=== PATIENT | female | born 1955 | race Caucasian/White ===

== ENCOUNTER 2022-04-04 11:31 | Inpatient (IN) | payer MEDICARE, BC ==
[~2022-04-04] VITALS: Ht 172.7 cm; Wt 117.3 kg
[2022-04-04] MEDS ORDERED: NITROGLYCERIN 0.4MG SUBL TABLET SL PRN (14:40)
[2022-04-04] MEDS ORDERED: DEXTROSE 50% 50ML SYRINGE IV PRN (14:40)
[2022-04-04] MEDS ORDERED: GLUCAGON INJ 1MG VIAL SC PRN (14:40)
[2022-04-04] MEDS ORDERED: GLUCOSE 4GM CHEW TABLET PO PRN (14:40)
[2022-04-04 15:10] VITALS: BP 145/79
[2022-04-04] MEDS: INSULIN LISPRO (NovoLOG) PER UNIT SC SCH ×2 (16:59→21:11)
[2022-04-04] MEDS ORDERED: CYCL5TAB PO (18:25)
[2022-04-04] MEDS ORDERED: ECOT81TA5 PO (18:25)
[2022-04-04] MEDS ORDERED: SYMB16INH INH (18:25)
[2022-04-04] MEDS ORDERED: ACET-907 PO (18:25)
[2022-04-04] MEDS ORDERED: AMLO1TAB24 PO (18:25)
[2022-04-04] MEDS ORDERED: VITA500T41 PO (18:25)
[2022-04-04] MEDS ORDERED: CLOP75TA2 PO (18:25)
[2022-04-04] MEDS ORDERED: ATOR80TA59 PO (18:25)
[2022-04-04] MEDS ORDERED: NITR0.4S14 SL (18:31)
[2022-04-04] MEDS ORDERED: LISI5TAB11 PO (18:31)
[2022-04-04] MEDS ORDERED: LANTINJ4 SC (18:31)
[2022-04-04] MEDS ORDERED: ADME100I SC (18:31)
[2022-04-04] MEDS ORDERED: LEVO25TA5 PO (18:31)
[2022-04-04] MEDS ORDERED: MONT10TA97 PO (18:31)
[2022-04-04] MEDS ORDERED: MM S100C PO (18:31)
[2022-04-04] MEDS ORDERED: FENO145T7 PO (18:31)
[2022-04-04] MEDS ORDERED: TOPR25TA PO (18:31)
[2022-04-04] MEDS ORDERED: TRUL0.5I SC (18:44)
[2022-04-04] MEDS ORDERED: NYST1POW9 TOP (18:44)
[2022-04-04] MEDS ORDERED: MIRA3350 PO (18:44)
[2022-04-04] MEDS ORDERED: HOME MED LIST COMPLETE! XX SCH (18:45)
[2022-04-04 20:00] VITALS: BP 164/79
[2022-04-04] MEDS: SYMBICORT 160/4.5MCG INHALER 6GM INH SCH (20:16)
[2022-04-04] MEDS: NYSTATIN 100,000 UNITS/GM TOPICAL PWD 15GM TOP SCH (21:00)
[2022-04-04] MEDS: LEVEMIR (INSULIN DETEMIR) 1 UNITS/0.01ML SC SCH (21:05)
[2022-04-04] MEDS: PANTOPRAZOLE 40MG TAB (PROTONIX) PO SCH (21:11)
[2022-04-04] MEDS: HEPARIN SOD (PORCINE) 5000UNITS/ML 1ML VIAL/SYRINGE SC SCH (21:11)
[2022-04-04] MEDS: DOCUSATE SODIUM 100MG CAPSULE PO SCH (21:12)
[2022-04-04] MEDS: MONTELUKAST 10 MG TAB PO SCH (21:12)
[2022-04-04] MEDS: ATORVASTATIN 20 MG TAB PO SCH (21:12)
[2022-04-04] MEDS: CYCLOBENZAPRINE 5MG TABLET PO PRN (21:15)
[2022-04-04] MEDS: ACETAMINOPHEN TAB 650MG DOSE (2X325MG) PO PRN (21:15)
[2022-04-04] MEDS: SENNA 8.6 MG TAB (SENOKOT) PO SCH (21:18)
[2022-04-04 22:13] VITALS: BP 146/88
[2022-04-05] MEDS: ACETAMINOPHEN TAB 650MG DOSE (2X325MG) PO PRN (01:59)
[2022-04-05 06:00] VITALS: BP 152/72
[2022-04-05] MEDS: CYCLOBENZAPRINE 5MG TABLET PO PRN (06:01)
[2022-04-05] MEDS: LEVOTHYROXINE 25MCG TABLET (0.025MG) PO SCH (06:01)
[2022-04-05 07:28] LABS: BASO # 0.1 10^3/uL (0.0-0.2); BASO % 0.8 % (0.0-1.0); EOS # 0.2 10^3/uL (0.0-0.5); EOS % 2.6 % (0.0-3.0); HEMATOCRIT 34.9 % (36.0-47.0); LYMPH # 1.4 10^3/uL (1.5-5.0); LYMPH % 17.3 % (24.0-44.0); MEAN CORPUSCULAR HEMOGLOBIN 27.2 pg (27.0-33.0); MEAN CORPUSCULAR HGB CONC 31.5 g/dl (32.0-36.5); MEAN CORPUSCULAR VOLUME 86.4 fl (80.0-96.0); MONO # 0.6 10^3/uL (0.0-0.8); MONO % 7.8 % (2.0-8.0); NEUTROPHILS # 5.6 10^3/uL (1.5-8.5); NEUTROPHILS % 70.7 % (36.0-66.0); PLATELET COUNT, AUTOMATED 183 10^3/uL (150-450); RED BLOOD COUNT 4.04 10^6/uL (4.00-5.40)
[2022-04-05 08:23] LABS: BILIRUBIN,TOTAL 0.7 MG/DL (0.3-1.2); CREATININE FOR GFR 1.14 MG/DL (0.55-1.30); GLOMERULAR FILTRATION RATE 50.6 (>45); POTASSIUM SERUM 4.5 MMOL/L (3.5-5.1); TOTAL PROTEIN 6.1 G/DL (5.7-8.2)
[2022-04-05] MEDS: HEPARIN SOD (PORCINE) 5000UNITS/ML 1ML VIAL/SYRINGE SC SCH ×2 (08:46→23:41)
[2022-04-05] MEDS: INSULIN LISPRO (NovoLOG) PER UNIT SC SCH ×4 (08:47→20:46)
[2022-04-05] MEDS: NYSTATIN 100,000 UNITS/GM TOPICAL PWD 15GM TOP SCH ×2 (08:49→20:49)
[2022-04-05] MEDS: FENOFIBRATE 145MG TABLET (TRICOR) PO SCH (08:49)
[2022-04-05] MEDS: lisinopriL 5 MG TAB PO SCH (08:49)
[2022-04-05] MEDS: amLODIPine 5 MG TAB PO SCH (08:49)
[2022-04-05] MEDS: ESCITALOPRAM OXALATE 5MG TABLET (LEXAPRO) PO SCH (08:49)
[2022-04-05] MEDS: ASPIRIN 81MG ENTERIC TABLET PO SCH (08:49)
[2022-04-05] MEDS: PANTOPRAZOLE 40MG TAB (PROTONIX) PO SCH ×2 (08:50→20:45)
[2022-04-05] MEDS: METOPROLOL SUCC *XL* 25MG TAB (TopROL *XL*) PO SCH (08:50)
[2022-04-05] MEDS: CYANOCOBALAMIN 500 MCG TAB PO SCH (08:50)
[2022-04-05] MEDS: CLOPIDOGREL 75 MG TAB PO SCH (08:50)
[2022-04-05] MEDS: DOCUSATE SODIUM 100MG CAPSULE PO SCH ×2 (08:50→20:45)
[2022-04-05] MEDS: FLUTICASONE PROP 0.05% NASAL SPRAY 16 GM (FLONASE) NARES SCH ×2 (09:00→20:48)
[2022-04-05] MEDS ORDERED: FLUBLOK(EGG FREE)(QUAD)INFLUENZA VACC 0.5ML SYRINGE 18YRS & OLDER IM.IMMUN ONE (09:00)
[2022-04-05] MEDS: SYMBICORT 160/4.5MCG INHALER 6GM INH SCH ×2 (10:00→20:05)
[2022-04-05 14:00] VITALS: BP 160/69
[2022-04-05] MEDS: SODIUM CHLORIDE NASAL 0.65% SPRAY BTL (OCEAN) SCH ×2 (15:03→20:45)
[2022-04-05] MEDS: guaiFENesin 200 MG TAB PO SCH ×2 (16:44→20:45)
[2022-04-05] MEDS ORDERED: HEPARIN SOD (PORCINE) 5000UNITS/ML 1ML VIAL/SYRINGE SC SCH (17:00)
[2022-04-05 19:50] VITALS: BP 153/73
[2022-04-05] MEDS: ATORVASTATIN 20 MG TAB PO SCH (20:45)
[2022-04-05] MEDS: traMADol 50 MG TAB PO PRN (20:45)
[2022-04-05] MEDS: MONTELUKAST 10 MG TAB PO SCH (20:45)
[2022-04-05] MEDS: SENNA 8.6 MG TAB (SENOKOT) PO SCH (20:45)
[2022-04-05] MEDS: LEVEMIR (INSULIN DETEMIR) 1 UNITS/0.01ML SC SCH (20:46)
[2022-04-05] MEDS: CEFDINIR 300 MG CAP (OMNICEF) PO SCH (20:53)
[2022-04-06] MEDS: traMADol 50 MG TAB PO PRN (03:53)
[2022-04-06] MEDS: HEPARIN SOD (PORCINE) 5000UNITS/ML 1ML VIAL/SYRINGE SC SCH ×2 (05:54→14:03)
[2022-04-06] MEDS: LEVOTHYROXINE 25MCG TABLET (0.025MG) PO SCH (05:54)
[2022-04-06 06:14] LABS: BASO # 0.1 10^3/uL (0.0-0.2); BASO % 0.8 % (0.0-1.0); EOS # 0.2 10^3/uL (0.0-0.5); EOS % 2.8 % (0.0-3.0); HEMOGLOBIN 10.9 g/dl (12.0-15.5); LYMPH # 1.6 10^3/uL (1.5-5.0); LYMPH % 19.8 % (24.0-44.0); MEAN CORPUSCULAR HEMOGLOBIN 27.3 pg (27.0-33.0); MEAN CORPUSCULAR HGB CONC 31.1 g/dl (32.0-36.5); MEAN CORPUSCULAR VOLUME 87.5 fl (80.0-96.0); MONO # 0.7 10^3/uL (0.0-0.8); MONO % 8.3 % (2.0-8.0); NEUTROPHILS # 5.3 10^3/uL (1.5-8.5); NEUTROPHILS % 67.5 % (36.0-66.0); PLATELET COUNT, AUTOMATED 184 10^3/uL (150-450); WHITE BLOOD COUNT 7.8 10^3/uL (4.0-10.0)
[2022-04-06 06:35] VITALS: BP_SYST 146; BP_SYST 46; BP_DIAS 72
[2022-04-06] MEDS: INSULIN LISPRO (NovoLOG) PER UNIT SC SCH ×4 (07:30→20:18)
[2022-04-06] MEDS: SYMBICORT 160/4.5MCG INHALER 6GM INH SCH ×2 (07:38→20:26)
[2022-04-06] MEDS: ACETAMINOPHEN TAB 650MG DOSE (2X325MG) PO PRN ×2 (07:52→14:03)
[2022-04-06] MEDS: CYANOCOBALAMIN 500 MCG TAB PO SCH (07:52)
[2022-04-06] MEDS: ESCITALOPRAM OXALATE 5MG TABLET (LEXAPRO) PO SCH (07:52)
[2022-04-06] MEDS: CEFDINIR 300 MG CAP (OMNICEF) PO SCH ×2 (07:52→20:17)
[2022-04-06] MEDS: PANTOPRAZOLE 40MG TAB (PROTONIX) PO SCH ×2 (07:52→20:17)
[2022-04-06] MEDS: guaiFENesin 200 MG TAB PO SCH ×3 (07:52→20:17)
[2022-04-06] MEDS: METOPROLOL SUCC *XL* 25MG TAB (TopROL *XL*) PO SCH (07:53)
[2022-04-06] MEDS: ASPIRIN 81MG ENTERIC TABLET PO SCH (07:53)
[2022-04-06] MEDS: FENOFIBRATE 145MG TABLET (TRICOR) PO SCH (07:54)
[2022-04-06] MEDS: lisinopriL 5 MG TAB PO SCH (07:54)
[2022-04-06] MEDS: DOCUSATE SODIUM 100MG CAPSULE PO SCH ×2 (07:54→20:17)
[2022-04-06] MEDS: LORATADINE 10 MG TAB PO SCH (07:54)
[2022-04-06] MEDS: amLODIPine 5 MG TAB PO SCH (07:55)
[2022-04-06] MEDS: CLOPIDOGREL 75 MG TAB PO SCH (07:55)
[2022-04-06] MEDS: SODIUM CHLORIDE NASAL 0.65% SPRAY BTL (OCEAN) SCH ×3 (07:55→20:19)
[2022-04-06] MEDS: FLUTICASONE PROP 0.05% NASAL SPRAY 16 GM (FLONASE) NARES SCH ×2 (07:56→20:19)
[2022-04-06] MEDS: NYSTATIN 100,000 UNITS/GM TOPICAL PWD 15GM TOP SCH ×2 (07:57→20:19)
[2022-04-06 14:00] VITALS: BP 140/60
[2022-04-06 20:03] VITALS: BP 147/68
[2022-04-06] MEDS: ATORVASTATIN 20 MG TAB PO SCH (20:17)
[2022-04-06] MEDS: SENNA 8.6 MG TAB (SENOKOT) PO SCH (20:17)
[2022-04-06] MEDS: MONTELUKAST 10 MG TAB PO SCH (20:17)
[2022-04-06] MEDS: LEVEMIR (INSULIN DETEMIR) 1 UNITS/0.01ML SC SCH (20:18)
[2022-04-07] MEDS: HEPARIN SOD (PORCINE) 5000UNITS/ML 1ML VIAL/SYRINGE SC SCH ×4 (00:03→22:12)
[2022-04-07] MEDS: traMADol 50 MG TAB PO PRN (03:14)
[2022-04-07] MEDS: LEVOTHYROXINE 25MCG TABLET (0.025MG) PO SCH (05:51)
[2022-04-07 06:06] VITALS: BP 136/85
[2022-04-07 06:18] LABS: BASO # 0.1 10^3/uL (0.0-0.2); BASO % 0.7 % (0.0-1.0); EOS # 0.2 10^3/uL (0.0-0.5); EOS % 2.6 % (0.0-3.0); HEMATOCRIT 34.2 % (36.0-47.0); HEMOGLOBIN 10.5 g/dl (12.0-15.5); LYMPH # 1.4 10^3/uL (1.5-5.0); LYMPH % 19.4 % (24.0-44.0); MEAN CORPUSCULAR HEMOGLOBIN 27.1 pg (27.0-33.0); MEAN CORPUSCULAR HGB CONC 30.7 g/dl (32.0-36.5); MEAN CORPUSCULAR VOLUME 88.1 fl (80.0-96.0); MONO # 0.6 10^3/uL (0.0-0.8); MONO % 8.5 % (2.0-8.0); NEUTROPHILS # 4.9 10^3/uL (1.5-8.5); NEUTROPHILS % 68.2 % (36.0-66.0); PLATELET COUNT, AUTOMATED 216 10^3/uL (150-450); RED BLOOD COUNT 3.88 10^6/uL (4.00-5.40); WHITE BLOOD COUNT 7.2 10^3/uL (4.0-10.0)
[2022-04-07 06:38] LABS: CALCIUM LEVEL 8.8 MG/DL (8.3-10.6); CREATININE FOR GFR 1.2 MG/DL (0.55-1.30); GLOMERULAR FILTRATION RATE 47.7 (>45); POTASSIUM SERUM 4.3 MMOL/L (3.5-5.1)
[2022-04-07] MEDS: SYMBICORT 160/4.5MCG INHALER 6GM INH SCH ×2 (07:33→20:19)
[2022-04-07] MEDS: CEFDINIR 300 MG CAP (OMNICEF) PO SCH ×2 (08:25→19:35)
[2022-04-07] MEDS: ESCITALOPRAM OXALATE 5MG TABLET (LEXAPRO) PO SCH (08:26)
[2022-04-07] MEDS: PANTOPRAZOLE 40MG TAB (PROTONIX) PO SCH ×2 (08:26→19:35)
[2022-04-07] MEDS: DOCUSATE SODIUM 100MG CAPSULE PO SCH ×2 (08:27→19:35)
[2022-04-07] MEDS: ACETAMINOPHEN TAB 650MG DOSE (2X325MG) PO PRN ×2 (08:27→19:35)
[2022-04-07] MEDS: INSULIN LISPRO (NovoLOG) PER UNIT SC SCH ×4 (08:27→21:00)
[2022-04-07] MEDS: guaiFENesin 200 MG TAB PO SCH ×3 (08:27→19:34)
[2022-04-07] MEDS: ASPIRIN 81MG ENTERIC TABLET PO SCH (08:28)
[2022-04-07] MEDS: LORATADINE 10 MG TAB PO SCH (08:28)
[2022-04-07] MEDS: CLOPIDOGREL 75 MG TAB PO SCH (08:28)
[2022-04-07] MEDS: lisinopriL 5 MG TAB PO SCH (08:29)
[2022-04-07] MEDS: METOPROLOL SUCC *XL* 25MG TAB (TopROL *XL*) PO SCH (08:29)
[2022-04-07] MEDS: CYANOCOBALAMIN 500 MCG TAB PO SCH (08:29)
[2022-04-07] MEDS: amLODIPine 5 MG TAB PO SCH (08:30)
[2022-04-07] MEDS: SODIUM CHLORIDE NASAL 0.65% SPRAY BTL (OCEAN) SCH ×3 (08:31→19:36)
[2022-04-07] MEDS: NYSTATIN 100,000 UNITS/GM TOPICAL PWD 15GM TOP SCH ×2 (08:31→19:36)
[2022-04-07] MEDS: FLUTICASONE PROP 0.05% NASAL SPRAY 16 GM (FLONASE) NARES SCH ×2 (08:43→19:36)
[2022-04-07] MEDS: FENOFIBRATE 145MG TABLET (TRICOR) PO SCH (10:19)
[2022-04-07] MEDS: BACLOFEN 5MG PER 1/2 TABLET PO SCH (12:31)
[2022-04-07 14:00] VITALS: BP 158/65
[2022-04-07] MEDS: ATORVASTATIN 20 MG TAB PO SCH (19:34)
[2022-04-07] MEDS: MONTELUKAST 10 MG TAB PO SCH (19:35)
[2022-04-07] MEDS: SENNA 8.6 MG TAB (SENOKOT) PO SCH (19:35)
[2022-04-07 20:00] VITALS: BP 162/68
[2022-04-07] MEDS: LEVEMIR (INSULIN DETEMIR) 1 UNITS/0.01ML SC SCH (22:12)
[2022-04-08] MEDS: traMADol 50 MG TAB PO PRN ×3 (02:25→21:07)
[2022-04-08 06:00] VITALS: BP 168/78
[2022-04-08] MEDS: HEPARIN SOD (PORCINE) 5000UNITS/ML 1ML VIAL/SYRINGE SC SCH ×3 (06:28→22:26)
[2022-04-08] MEDS: LEVOTHYROXINE 25MCG TABLET (0.025MG) PO SCH (06:28)
[2022-04-08] MEDS: SYMBICORT 160/4.5MCG INHALER 6GM INH SCH ×2 (07:11→21:53)
[2022-04-08] MEDS: FLUTICASONE PROP 0.05% NASAL SPRAY 16 GM (FLONASE) NARES SCH ×2 (09:00→21:00)
[2022-04-08] MEDS: DOCUSATE SODIUM 100MG CAPSULE PO SCH ×2 (09:00→21:06)
[2022-04-08] MEDS: SODIUM CHLORIDE NASAL 0.65% SPRAY BTL (OCEAN) SCH ×3 (09:00→21:07)
[2022-04-08] MEDS: INSULIN LISPRO (NovoLOG) PER UNIT SC SCH ×4 (09:11→21:00)
[2022-04-08] MEDS: CYANOCOBALAMIN 500 MCG TAB PO SCH (09:11)
[2022-04-08] MEDS: CEFDINIR 300 MG CAP (OMNICEF) PO SCH ×2 (09:12→21:05)
[2022-04-08] MEDS: guaiFENesin 200 MG TAB PO SCH ×3 (09:12→21:05)
[2022-04-08] MEDS: ASPIRIN 81MG ENTERIC TABLET PO SCH (09:12)
[2022-04-08] MEDS: FENOFIBRATE 145MG TABLET (TRICOR) PO SCH (09:12)
[2022-04-08] MEDS: CLOPIDOGREL 75 MG TAB PO SCH (09:12)
[2022-04-08] MEDS: BACLOFEN 5MG PER 1/2 TABLET PO SCH (09:12)
[2022-04-08] MEDS: PANTOPRAZOLE 40MG TAB (PROTONIX) PO SCH ×2 (09:12→21:06)
[2022-04-08] MEDS: LORATADINE 10 MG TAB PO SCH (09:12)
[2022-04-08] MEDS: ESCITALOPRAM OXALATE 5MG TABLET (LEXAPRO) PO SCH (09:13)
[2022-04-08] MEDS: METOPROLOL SUCC *XL* 25MG TAB (TopROL *XL*) PO SCH (09:13)
[2022-04-08] MEDS: amLODIPine 5 MG TAB PO SCH (09:14)
[2022-04-08] MEDS: lisinopriL 5 MG TAB PO SCH (09:14)
[2022-04-08] MEDS: NYSTATIN 100,000 UNITS/GM TOPICAL PWD 15GM TOP SCH ×2 (09:15→21:07)
[2022-04-08 14:00] VITALS: BP 164/76
[2022-04-08 20:00] VITALS: BP 144/68
[2022-04-08] MEDS: ATORVASTATIN 20 MG TAB PO SCH (21:05)
[2022-04-08] MEDS: MONTELUKAST 10 MG TAB PO SCH (21:06)
[2022-04-08] MEDS: SENNA 8.6 MG TAB (SENOKOT) PO SCH (21:06)
[2022-04-08] MEDS: LEVEMIR (INSULIN DETEMIR) 1 UNITS/0.01ML SC SCH (21:07)
[2022-04-09 06:00] VITALS: BP 162/84
[2022-04-09] MEDS: LEVOTHYROXINE 25MCG TABLET (0.025MG) PO SCH (06:31)
[2022-04-09] MEDS: HEPARIN SOD (PORCINE) 5000UNITS/ML 1ML VIAL/SYRINGE SC SCH ×3 (06:32→21:37)
[2022-04-09] MEDS: SYMBICORT 160/4.5MCG INHALER 6GM INH SCH ×2 (07:28→20:42)
[2022-04-09] MEDS: CYANOCOBALAMIN 500 MCG TAB PO SCH (08:19)
[2022-04-09] MEDS: FENOFIBRATE 145MG TABLET (TRICOR) PO SCH (08:20)
[2022-04-09] MEDS: CLOPIDOGREL 75 MG TAB PO SCH (08:20)
[2022-04-09] MEDS: PANTOPRAZOLE 40MG TAB (PROTONIX) PO SCH ×2 (08:20→21:36)
[2022-04-09] MEDS: ESCITALOPRAM OXALATE 5MG TABLET (LEXAPRO) PO SCH (08:20)
[2022-04-09] MEDS: CEFDINIR 300 MG CAP (OMNICEF) PO SCH ×2 (08:20→21:35)
[2022-04-09] MEDS: BACLOFEN 5MG PER 1/2 TABLET PO SCH (08:20)
[2022-04-09] MEDS: ASPIRIN 81MG ENTERIC TABLET PO SCH (08:20)
[2022-04-09] MEDS: guaiFENesin 200 MG TAB PO SCH ×3 (08:20→21:36)
[2022-04-09] MEDS: LORATADINE 10 MG TAB PO SCH (08:20)
[2022-04-09] MEDS: DOCUSATE SODIUM 100MG CAPSULE PO SCH ×2 (08:20→21:00)
[2022-04-09] MEDS: amLODIPine 5 MG TAB PO SCH (08:21)
[2022-04-09] MEDS: lisinopriL 5 MG TAB PO SCH (08:21)
[2022-04-09] MEDS: METOPROLOL SUCC *XL* 25MG TAB (TopROL *XL*) PO SCH (08:21)
[2022-04-09] MEDS: FLUTICASONE PROP 0.05% NASAL SPRAY 16 GM (FLONASE) NARES SCH ×2 (08:22→21:00)
[2022-04-09] MEDS: SODIUM CHLORIDE NASAL 0.65% SPRAY BTL (OCEAN) SCH ×3 (08:22→21:37)
[2022-04-09] MEDS: INSULIN LISPRO (NovoLOG) PER UNIT SC SCH ×4 (08:22→21:00)
[2022-04-09] MEDS: NYSTATIN 100,000 UNITS/GM TOPICAL PWD 15GM TOP SCH ×2 (08:23→21:37)
[2022-04-09 14:00] VITALS: BP 142/76
[2022-04-09 20:00] VITALS: BP 140/86
[2022-04-09] MEDS: SENNA 8.6 MG TAB (SENOKOT) PO SCH (21:00)
[2022-04-09] MEDS: LEVEMIR (INSULIN DETEMIR) 1 UNITS/0.01ML SC SCH (21:35)
[2022-04-09] MEDS: ATORVASTATIN 20 MG TAB PO SCH (21:35)
[2022-04-09] MEDS: MONTELUKAST 10 MG TAB PO SCH (21:36)
[2022-04-09] MEDS: traMADol 50 MG TAB PO PRN (21:37)
[2022-04-10 03:37] VITALS: BP 164/92
[2022-04-10] MEDS ORDERED: FIORICET TAB PO ONE (04:00)
[2022-04-10] MEDS ORDERED: CALCIUM CARBONATE 500 MG CHEW U/D PO ONE (04:10)
[2022-04-10 05:15] VITALS: BP 138/72
[2022-04-10] MEDS: LEVOTHYROXINE 25MCG TABLET (0.025MG) PO SCH (06:08)
[2022-04-10] MEDS: HEPARIN SOD (PORCINE) 5000UNITS/ML 1ML VIAL/SYRINGE SC SCH ×3 (06:09→21:41)
[2022-04-10 06:37] LABS: BASO # 0.1 10^3/uL (0.0-0.2); BASO % 0.8 % (0.0-1.0); EOS # 0.2 10^3/uL (0.0-0.5); EOS % 2.5 % (0.0-3.0); HEMATOCRIT 33.3 % (36.0-47.0); HEMOGLOBIN 10.2 g/dl (12.0-15.5); LYMPH # 1.3 10^3/uL (1.5-5.0); LYMPH % 20.1 % (24.0-44.0); MEAN CORPUSCULAR HGB CONC 30.6 g/dl (32.0-36.5); MEAN CORPUSCULAR VOLUME 88.1 fl (80.0-96.0); MONO # 0.6 10^3/uL (0.0-0.8); MONO % 9.1 % (2.0-8.0); NEUTROPHILS # 4.3 10^3/uL (1.5-8.5); NEUTROPHILS % 66.4 % (36.0-66.0); PLATELET COUNT, AUTOMATED 247 10^3/uL (150-450); RED BLOOD COUNT 3.78 10^6/uL (4.00-5.40); WHITE BLOOD COUNT 6.5 10^3/uL (4.0-10.0)
[2022-04-10 06:48] LABS: CALCIUM LEVEL 9.1 MG/DL (8.3-10.6); CREATININE FOR GFR 1.06 MG/DL (0.55-1.30); POTASSIUM SERUM 4.3 MMOL/L (3.5-5.1)
[2022-04-10] MEDS: SYMBICORT 160/4.5MCG INHALER 6GM INH SCH ×2 (07:29→21:02)
[2022-04-10] MEDS: FENOFIBRATE 145MG TABLET (TRICOR) PO SCH (07:37)
[2022-04-10] MEDS: LORATADINE 10 MG TAB PO SCH (07:37)
[2022-04-10] MEDS: guaiFENesin 200 MG TAB PO SCH ×3 (07:37→21:37)
[2022-04-10] MEDS: amLODIPine 5 MG TAB PO SCH (07:37)
[2022-04-10] MEDS: CEFDINIR 300 MG CAP (OMNICEF) PO SCH ×2 (07:37→21:36)
[2022-04-10] MEDS: CYANOCOBALAMIN 500 MCG TAB PO SCH (07:37)
[2022-04-10] MEDS: CLOPIDOGREL 75 MG TAB PO SCH (07:38)
[2022-04-10] MEDS: INSULIN LISPRO (NovoLOG) PER UNIT SC SCH ×4 (07:38→21:00)
[2022-04-10] MEDS: DOCUSATE SODIUM 100MG CAPSULE PO SCH ×2 (07:38→21:00)
[2022-04-10] MEDS: PANTOPRAZOLE 40MG TAB (PROTONIX) PO SCH ×2 (07:39→21:37)
[2022-04-10] MEDS: ESCITALOPRAM OXALATE 5MG TABLET (LEXAPRO) PO SCH (07:39)
[2022-04-10] MEDS: METOPROLOL SUCC *XL* 25MG TAB (TopROL *XL*) PO SCH (07:39)
[2022-04-10] MEDS: BACLOFEN 5MG PER 1/2 TABLET PO SCH (07:39)
[2022-04-10] MEDS: ASPIRIN 81MG ENTERIC TABLET PO SCH (07:39)
[2022-04-10] MEDS: SODIUM CHLORIDE NASAL 0.65% SPRAY BTL (OCEAN) SCH ×3 (07:40→21:00)
[2022-04-10] MEDS: NYSTATIN 100,000 UNITS/GM TOPICAL PWD 15GM TOP SCH ×2 (07:40→21:42)
[2022-04-10] MEDS: FLUTICASONE PROP 0.05% NASAL SPRAY 16 GM (FLONASE) NARES SCH ×2 (07:40→21:00)
[2022-04-10] MEDS: traMADol 50 MG TAB PO PRN ×2 (07:40→21:37)
[2022-04-10] MEDS: lisinopriL 5 MG TAB PO SCH (07:41)
[2022-04-10 14:00] VITALS: BP 143/69
[2022-04-10 20:00] VITALS: BP_SYST 140; BP_DIAS 78; BP_DIAS 80
[2022-04-10] MEDS: SENNA 8.6 MG TAB (SENOKOT) PO SCH (21:00)
[2022-04-10] MEDS: ATORVASTATIN 20 MG TAB PO SCH (21:36)
[2022-04-10] MEDS: MONTELUKAST 10 MG TAB PO SCH (21:36)
[2022-04-10] MEDS: LEVEMIR (INSULIN DETEMIR) 1 UNITS/0.01ML SC SCH (21:41)
[2022-04-11 06:00] VITALS: BP 140/74
[2022-04-11] MEDS: LEVOTHYROXINE 25MCG TABLET (0.025MG) PO SCH (06:31)
[2022-04-11] MEDS: SYMBICORT 160/4.5MCG INHALER 6GM INH SCH ×2 (07:55→20:14)
[2022-04-11] MEDS: traMADol 50 MG TAB PO PRN ×3 (08:29→20:42)
[2022-04-11] MEDS: FENOFIBRATE 145MG TABLET (TRICOR) PO SCH (08:29)
[2022-04-11] MEDS: CYANOCOBALAMIN 500 MCG TAB PO SCH (08:29)
[2022-04-11] MEDS: CEFDINIR 300 MG CAP (OMNICEF) PO SCH ×2 (08:30→20:41)
[2022-04-11] MEDS: ESCITALOPRAM OXALATE 5MG TABLET (LEXAPRO) PO SCH (08:30)
[2022-04-11] MEDS: lisinopriL 5 MG TAB PO SCH (08:30)
[2022-04-11] MEDS: PANTOPRAZOLE 40MG TAB (PROTONIX) PO SCH ×2 (08:30→20:42)
[2022-04-11] MEDS: LORATADINE 10 MG TAB PO SCH (08:30)
[2022-04-11] MEDS: guaiFENesin 200 MG TAB PO SCH ×3 (08:30→20:42)
[2022-04-11] MEDS: BACLOFEN 5MG PER 1/2 TABLET PO SCH (08:30)
[2022-04-11] MEDS: amLODIPine 5 MG TAB PO SCH (08:30)
[2022-04-11] MEDS: ASPIRIN 81MG ENTERIC TABLET PO SCH (08:30)
[2022-04-11] MEDS: METOPROLOL SUCC *XL* 25MG TAB (TopROL *XL*) PO SCH (08:30)
[2022-04-11] MEDS: INSULIN LISPRO (NovoLOG) PER UNIT SC SCH ×4 (08:31→20:35)
[2022-04-11] MEDS: HEPARIN SOD (PORCINE) 5000UNITS/ML 1ML VIAL/SYRINGE SC SCH ×3 (08:31→22:12)
[2022-04-11] MEDS: DOCUSATE SODIUM 100MG CAPSULE PO SCH ×2 (08:31→20:06)
[2022-04-11] MEDS: CLOPIDOGREL 75 MG TAB PO SCH (08:32)
[2022-04-11] MEDS: NYSTATIN 100,000 UNITS/GM TOPICAL PWD 15GM TOP SCH ×2 (08:32→20:44)
[2022-04-11] MEDS: FLUTICASONE PROP 0.05% NASAL SPRAY 16 GM (FLONASE) NARES SCH ×2 (08:32→20:43)
[2022-04-11] MEDS: SODIUM CHLORIDE NASAL 0.65% SPRAY BTL (OCEAN) SCH ×3 (08:32→20:43)
[2022-04-11 14:00] VITALS: BP 149/67
[2022-04-11 20:00] VITALS: BP 150/66
[2022-04-11] MEDS: SENNA 8.6 MG TAB (SENOKOT) PO SCH (20:06)
[2022-04-11] MEDS: MONTELUKAST 10 MG TAB PO SCH (20:41)
[2022-04-11] MEDS: ATORVASTATIN 20 MG TAB PO SCH (20:41)
[2022-04-11] MEDS: LEVEMIR (INSULIN DETEMIR) 1 UNITS/0.01ML SC SCH (20:42)
[2022-04-12] MEDS: traMADol 50 MG TAB PO PRN (03:47)
[2022-04-12 06:00] VITALS: BP 144/68
[2022-04-12] MEDS: LEVOTHYROXINE 25MCG TABLET (0.025MG) PO SCH (06:04)
[2022-04-12] MEDS: HEPARIN SOD (PORCINE) 5000UNITS/ML 1ML VIAL/SYRINGE SC SCH ×3 (06:05→21:54)
[2022-04-12] MEDS: ASPIRIN 81MG ENTERIC TABLET PO SCH (08:23)
[2022-04-12] MEDS: LORATADINE 10 MG TAB PO SCH (08:24)
[2022-04-12] MEDS: guaiFENesin 200 MG TAB PO SCH ×3 (08:24→21:51)
[2022-04-12] MEDS: PANTOPRAZOLE 40MG TAB (PROTONIX) PO SCH ×2 (08:24→21:51)
[2022-04-12] MEDS: CLOPIDOGREL 75 MG TAB PO SCH (08:24)
[2022-04-12] MEDS: CEFDINIR 300 MG CAP (OMNICEF) PO SCH (08:24)
[2022-04-12] MEDS: CYANOCOBALAMIN 500 MCG TAB PO SCH (08:24)
[2022-04-12] MEDS: BACLOFEN 5MG PER 1/2 TABLET PO SCH (08:24)
[2022-04-12] MEDS: FENOFIBRATE 145MG TABLET (TRICOR) PO SCH (08:24)
[2022-04-12] MEDS: ESCITALOPRAM OXALATE 5MG TABLET (LEXAPRO) PO SCH (08:24)
[2022-04-12] MEDS: DOCUSATE SODIUM 100MG CAPSULE PO SCH ×2 (08:24→21:00)
[2022-04-12] MEDS: INSULIN LISPRO (NovoLOG) PER UNIT SC SCH ×4 (08:25→21:00)
[2022-04-12] MEDS: METOPROLOL SUCC *XL* 25MG TAB (TopROL *XL*) PO SCH (08:25)
[2022-04-12] MEDS: lisinopriL 5 MG TAB PO SCH (08:25)
[2022-04-12] MEDS: amLODIPine 5 MG TAB PO SCH (08:25)
[2022-04-12] MEDS: SODIUM CHLORIDE NASAL 0.65% SPRAY BTL (OCEAN) SCH ×3 (08:26→21:52)
[2022-04-12] MEDS: NYSTATIN 100,000 UNITS/GM TOPICAL PWD 15GM TOP SCH ×2 (08:26→21:00)
[2022-04-12] MEDS: FLUTICASONE PROP 0.05% NASAL SPRAY 16 GM (FLONASE) NARES SCH ×2 (08:26→21:00)
[2022-04-12] MEDS: SYMBICORT 160/4.5MCG INHALER 6GM INH SCH ×2 (09:06→20:14)
[2022-04-12 10:56] LABS: BASO # 0.1 10^3/uL (0.0-0.2); EOS # 0.2 10^3/uL (0.0-0.5); EOS % 2.3 % (0.0-3.0); HEMATOCRIT 35.5 % (36.0-47.0); HEMOGLOBIN 10.9 g/dl (12.0-15.5); LYMPH # 1.2 10^3/uL (1.5-5.0); MEAN CORPUSCULAR HEMOGLOBIN 27.4 pg (27.0-33.0); MEAN CORPUSCULAR HGB CONC 30.7 g/dl (32.0-36.5); MEAN CORPUSCULAR VOLUME 89.2 fl (80.0-96.0); MONO # 0.5 10^3/uL (0.0-0.8); MONO % 7.3 % (2.0-8.0); NEUTROPHILS # 5.2 10^3/uL (1.5-8.5); PLATELET COUNT, AUTOMATED 286 10^3/uL (150-450); RED BLOOD COUNT 3.98 10^6/uL (4.00-5.40); WHITE BLOOD COUNT 7.3 10^3/uL (4.0-10.0)
[2022-04-12 11:30] LABS: CALCIUM LEVEL 9.3 MG/DL (8.3-10.6); CREATININE FOR GFR 1.15 MG/DL (0.55-1.30); GLOMERULAR FILTRATION RATE 50.1 (>45); POTASSIUM SERUM 4.3 MMOL/L (3.5-5.1)
[2022-04-12] MEDS: GABAPENTIN 100 MG CAP PO SCH ×2 (12:15→16:11)
[2022-04-12 15:08] VITALS: BP 148/80
[2022-04-12] MEDS ORDERED: MAALOX 30 ML SUSP *UDC PO ONE (16:30)
[2022-04-12] MEDS: DICLOFENAC EPOLAMINE 1.3% PATCH TOP SCH (17:35)
[2022-04-12 20:00] VITALS: BP 126/70
[2022-04-12] MEDS: SENNA 8.6 MG TAB (SENOKOT) PO SCH (21:00)
[2022-04-12] MEDS: ATORVASTATIN 20 MG TAB PO SCH (21:51)
[2022-04-12] MEDS: MONTELUKAST 10 MG TAB PO SCH (21:51)
[2022-04-12] MEDS: LEVEMIR (INSULIN DETEMIR) 1 UNITS/0.01ML SC SCH (21:52)
[2022-04-13] MEDS: traMADol 50 MG TAB PO PRN ×2 (02:47→11:05)
[2022-04-13 06:00] VITALS: BP 168/70
[2022-04-13] MEDS: HEPARIN SOD (PORCINE) 5000UNITS/ML 1ML VIAL/SYRINGE SC SCH ×3 (06:02→21:39)
[2022-04-13] MEDS: LEVOTHYROXINE 25MCG TABLET (0.025MG) PO SCH (06:02)
[2022-04-13] MEDS: DICLOFENAC EPOLAMINE 1.3% PATCH TOP SCH ×2 (06:03→17:26)
[2022-04-13] MEDS: NYSTATIN 100,000 UNITS/GM TOPICAL PWD 15GM TOP SCH ×2 (09:00→21:00)
[2022-04-13] MEDS: FLUTICASONE PROP 0.05% NASAL SPRAY 16 GM (FLONASE) NARES SCH (09:00)
[2022-04-13] MEDS: SODIUM CHLORIDE NASAL 0.65% SPRAY BTL (OCEAN) SCH ×3 (09:00→21:34)
[2022-04-13] MEDS: lisinopriL 5 MG TAB PO SCH (09:08)
[2022-04-13] MEDS: CLOPIDOGREL 75 MG TAB PO SCH (09:08)
[2022-04-13] MEDS: METOPROLOL SUCC *XL* 25MG TAB (TopROL *XL*) PO SCH (09:08)
[2022-04-13] MEDS: LORATADINE 10 MG TAB PO SCH (09:08)
[2022-04-13] MEDS: ASPIRIN 81MG ENTERIC TABLET PO SCH (09:08)
[2022-04-13] MEDS: DOCUSATE SODIUM 100MG CAPSULE PO SCH ×2 (09:08→21:00)
[2022-04-13] MEDS: CYANOCOBALAMIN 500 MCG TAB PO SCH (09:08)
[2022-04-13] MEDS: FENOFIBRATE 145MG TABLET (TRICOR) PO SCH (09:08)
[2022-04-13] MEDS: DULoxetine 20MG CAP (CYMBALTA) PO SCH (09:08)
[2022-04-13] MEDS: INSULIN LISPRO (NovoLOG) PER UNIT SC SCH ×4 (09:08→21:00)
[2022-04-13] MEDS: amLODIPine 5 MG TAB PO SCH (09:09)
[2022-04-13] MEDS: guaiFENesin 200 MG TAB PO SCH ×3 (09:09→21:35)
[2022-04-13] MEDS: PANTOPRAZOLE 40MG TAB (PROTONIX) PO SCH ×2 (09:09→21:35)
[2022-04-13] MEDS: BACLOFEN 5MG PER 1/2 TABLET PO SCH (09:09)
[2022-04-13] MEDS: MIRALAX *UNIT DOSE* 17GM PACKET PO SCH (12:15)
[2022-04-13] MEDS: SYMBICORT 160/4.5MCG INHALER 6GM INH SCH ×2 (13:40→20:30)
[2022-04-13 14:00] VITALS: BP 169/74
[2022-04-13 20:00] VITALS: BP 162/68
[2022-04-13] MEDS: SENNA 8.6 MG TAB (SENOKOT) PO SCH (21:00)
[2022-04-13] MEDS: OXYMETAZOLINE 0.05% NASAL SPRAY (AFRIN) SCH (21:34)
[2022-04-13] MEDS: LEVEMIR (INSULIN DETEMIR) 1 UNITS/0.01ML SC SCH (21:34)
[2022-04-13] MEDS: RAMELTEON 8 MG TAB (ROZEREM) PO SCH (21:35)
[2022-04-13] MEDS: ATORVASTATIN 20 MG TAB PO SCH (21:35)
[2022-04-13] MEDS: MONTELUKAST 10 MG TAB PO SCH (21:35)
[2022-04-14] MEDS: MAALOX 30 ML SUSP *UDC PO PRN ×2 (00:55→13:24)
[2022-04-14] MEDS: traMADol 50 MG TAB PO PRN ×2 (05:12→11:32)
[2022-04-14] MEDS: DICLOFENAC EPOLAMINE 1.3% PATCH TOP SCH ×2 (05:13→14:54)
[2022-04-14] MEDS: LEVOTHYROXINE 25MCG TABLET (0.025MG) PO SCH (05:13)
[2022-04-14 05:36] VITALS: BP 140/70
[2022-04-14] MEDS: HEPARIN SOD (PORCINE) 5000UNITS/ML 1ML VIAL/SYRINGE SC SCH ×3 (06:34→21:54)
[2022-04-14 06:39] LABS: BASO # 0.1 10^3/uL (0.0-0.2); BASO % 0.7 % (0.0-1.0); EOS # 0.2 10^3/uL (0.0-0.5); EOS % 3.2 % (0.0-3.0); HEMATOCRIT 32.5 % (36.0-47.0); HEMOGLOBIN 10.1 g/dl (12.0-15.5); LYMPH # 1.3 10^3/uL (1.5-5.0); LYMPH % 18.7 % (24.0-44.0); MEAN CORPUSCULAR HEMOGLOBIN 27.2 pg (27.0-33.0); MEAN CORPUSCULAR HGB CONC 31.1 g/dl (32.0-36.5); MEAN CORPUSCULAR VOLUME 87.6 fl (80.0-96.0); MONO # 0.5 10^3/uL (0.0-0.8); MONO % 7.4 % (2.0-8.0); NEUTROPHILS # 4.7 10^3/uL (1.5-8.5); PLATELET COUNT, AUTOMATED 222 10^3/uL (150-450); RED BLOOD COUNT 3.71 10^6/uL (4.00-5.40); WHITE BLOOD COUNT 6.9 10^3/uL (4.0-10.0)
[2022-04-14 06:58] LABS: CALCIUM LEVEL 8.5 MG/DL (8.3-10.6); CREATININE FOR GFR 1.05 MG/DL (0.55-1.30); GLOMERULAR FILTRATION RATE 55.7 (>45); POTASSIUM SERUM 4.3 MMOL/L (3.5-5.1)
[2022-04-14] MEDS: SYMBICORT 160/4.5MCG INHALER 6GM INH SCH ×2 (07:27→20:09)
[2022-04-14] MEDS: INSULIN LISPRO (NovoLOG) PER UNIT SC SCH ×4 (08:29→21:00)
[2022-04-14] MEDS: CYANOCOBALAMIN 500 MCG TAB PO SCH (08:29)
[2022-04-14] MEDS: FENOFIBRATE 145MG TABLET (TRICOR) PO SCH (08:29)
[2022-04-14] MEDS: METOPROLOL SUCC *XL* 25MG TAB (TopROL *XL*) PO SCH (08:29)
[2022-04-14] MEDS: DOCUSATE SODIUM 100MG CAPSULE PO SCH ×2 (08:30→21:26)
[2022-04-14] MEDS: BACLOFEN 5MG PER 1/2 TABLET PO SCH (08:30)
[2022-04-14] MEDS: DULoxetine 20MG CAP (CYMBALTA) PO SCH (08:30)
[2022-04-14] MEDS: ASPIRIN 81MG ENTERIC TABLET PO SCH (08:30)
[2022-04-14] MEDS: lisinopriL 5 MG TAB PO SCH (08:30)
[2022-04-14] MEDS: CLOPIDOGREL 75 MG TAB PO SCH (08:30)
[2022-04-14] MEDS: LORATADINE 10 MG TAB PO SCH (08:30)
[2022-04-14] MEDS: PANTOPRAZOLE 40MG TAB (PROTONIX) PO SCH ×2 (08:30→21:23)
[2022-04-14] MEDS: OXYMETAZOLINE 0.05% NASAL SPRAY (AFRIN) SCH ×2 (08:31→21:25)
[2022-04-14] MEDS: amLODIPine 5 MG TAB PO SCH (08:31)
[2022-04-14] MEDS: SODIUM CHLORIDE NASAL 0.65% SPRAY BTL (OCEAN) SCH ×3 (08:31→21:25)
[2022-04-14] MEDS: MIRALAX *UNIT DOSE* 17GM PACKET PO SCH (08:31)
[2022-04-14] MEDS: guaiFENesin 200 MG TAB PO SCH ×3 (08:31→21:23)
[2022-04-14] MEDS: NYSTATIN 100,000 UNITS/GM TOPICAL PWD 15GM TOP SCH ×2 (08:32→21:25)
[2022-04-14 13:50] VITALS: BP 160/62
[2022-04-14] MEDS: SIMETHICONE 80MG CHEW TAB PO SCH ×2 (14:53→21:23)
[2022-04-14 20:00] VITALS: BP 140/64
[2022-04-14] MEDS: ATORVASTATIN 20 MG TAB PO SCH (21:23)
[2022-04-14] MEDS: MONTELUKAST 10 MG TAB PO SCH (21:23)
[2022-04-14] MEDS: RAMELTEON 8 MG TAB (ROZEREM) PO SCH (21:23)
[2022-04-14] MEDS: traMADol 50 MG TAB PO SCH (21:24)
[2022-04-14] MEDS: LEVEMIR (INSULIN DETEMIR) 1 UNITS/0.01ML SC SCH (21:25)
[2022-04-14] MEDS: SENNA 8.6 MG TAB (SENOKOT) PO SCH (21:26)
[2022-04-15] MEDS: DICLOFENAC EPOLAMINE 1.3% PATCH TOP SCH ×2 (05:44→16:55)
[2022-04-15] MEDS: LEVOTHYROXINE 25MCG TABLET (0.025MG) PO SCH (05:44)
[2022-04-15 06:00] VITALS: BP 135/58
[2022-04-15] MEDS: HEPARIN SOD (PORCINE) 5000UNITS/ML 1ML VIAL/SYRINGE SC SCH ×3 (06:58→21:31)
[2022-04-15] MEDS: INSULIN LISPRO (NovoLOG) PER UNIT SC SCH ×4 (07:30→21:00)
[2022-04-15] MEDS: SYMBICORT 160/4.5MCG INHALER 6GM INH SCH ×2 (07:38→20:42)
[2022-04-15] MEDS: DOCUSATE SODIUM 100MG CAPSULE PO SCH ×2 (08:19→21:30)
[2022-04-15] MEDS: LORATADINE 10 MG TAB PO SCH (08:19)
[2022-04-15] MEDS: DULoxetine 20MG CAP (CYMBALTA) PO SCH (08:20)
[2022-04-15] MEDS: ASPIRIN 81MG ENTERIC TABLET PO SCH (08:20)
[2022-04-15] MEDS: MIRALAX *UNIT DOSE* 17GM PACKET PO SCH (08:21)
[2022-04-15] MEDS: SIMETHICONE 80MG CHEW TAB PO SCH ×3 (08:21→21:29)
[2022-04-15] MEDS: BACLOFEN 5MG PER 1/2 TABLET PO SCH (08:21)
[2022-04-15] MEDS: CLOPIDOGREL 75 MG TAB PO SCH (08:22)
[2022-04-15] MEDS: guaiFENesin 200 MG TAB PO SCH ×3 (08:22→21:29)
[2022-04-15] MEDS: lisinopriL 5 MG TAB PO SCH (08:22)
[2022-04-15] MEDS: amLODIPine 5 MG TAB PO SCH (08:22)
[2022-04-15] MEDS: PANTOPRAZOLE 40MG TAB (PROTONIX) PO SCH ×2 (08:22→21:29)
[2022-04-15] MEDS: OXYMETAZOLINE 0.05% NASAL SPRAY (AFRIN) SCH ×2 (08:26→21:00)
[2022-04-15] MEDS: FENOFIBRATE 145MG TABLET (TRICOR) PO SCH (08:26)
[2022-04-15] MEDS: METOPROLOL SUCC *XL* 25MG TAB (TopROL *XL*) PO SCH (08:26)
[2022-04-15] MEDS: CYANOCOBALAMIN 500 MCG TAB PO SCH (08:26)
[2022-04-15] MEDS: NYSTATIN 100,000 UNITS/GM TOPICAL PWD 15GM TOP SCH ×2 (08:27→21:31)
[2022-04-15] MEDS: SODIUM CHLORIDE NASAL 0.65% SPRAY BTL (OCEAN) SCH ×3 (08:27→21:00)
[2022-04-15 14:00] VITALS: BP 144/99
[2022-04-15 20:00] VITALS: BP 125/102
[2022-04-15] MEDS: MONTELUKAST 10 MG TAB PO SCH (21:29)
[2022-04-15] MEDS: SENNA 8.6 MG TAB (SENOKOT) PO SCH (21:29)
[2022-04-15] MEDS: RAMELTEON 8 MG TAB (ROZEREM) PO SCH (21:29)
[2022-04-15] MEDS: ATORVASTATIN 20 MG TAB PO SCH (21:29)
[2022-04-15] MEDS: traMADol 50 MG TAB PO SCH (21:30)
[2022-04-15] MEDS: MICONAZOLE-7 VAGINAL 2% CREAM 47.7GM PV SCH (21:31)
[2022-04-15] MEDS: LEVEMIR (INSULIN DETEMIR) 1 UNITS/0.01ML SC SCH (21:31)
[2022-04-16 06:00] VITALS: BP 139/70
[2022-04-16] MEDS: LEVOTHYROXINE 25MCG TABLET (0.025MG) PO SCH (06:20)
[2022-04-16] MEDS: HEPARIN SOD (PORCINE) 5000UNITS/ML 1ML VIAL/SYRINGE SC SCH ×3 (06:21→21:25)
[2022-04-16] MEDS: DICLOFENAC EPOLAMINE 1.3% PATCH TOP SCH ×2 (06:21→17:19)
[2022-04-16] MEDS: INSULIN LISPRO (NovoLOG) PER UNIT SC SCH ×4 (07:30→21:00)
[2022-04-16] MEDS: SYMBICORT 160/4.5MCG INHALER 6GM INH SCH ×2 (07:36→20:00)
[2022-04-16] MEDS: MIRALAX *UNIT DOSE* 17GM PACKET PO SCH (09:13)
[2022-04-16] MEDS: BACLOFEN 5MG PER 1/2 TABLET PO SCH (09:13)
[2022-04-16] MEDS: DOCUSATE SODIUM 100MG CAPSULE PO SCH ×2 (09:13→21:24)
[2022-04-16] MEDS: ASPIRIN 81MG ENTERIC TABLET PO SCH (09:13)
[2022-04-16] MEDS: DULoxetine 20MG CAP (CYMBALTA) PO SCH (09:13)
[2022-04-16] MEDS: LORATADINE 10 MG TAB PO SCH (09:13)
[2022-04-16] MEDS: SIMETHICONE 80MG CHEW TAB PO SCH ×3 (09:14→21:24)
[2022-04-16] MEDS: amLODIPine 5 MG TAB PO SCH (09:14)
[2022-04-16] MEDS: CLOPIDOGREL 75 MG TAB PO SCH (09:14)
[2022-04-16] MEDS: FENOFIBRATE 145MG TABLET (TRICOR) PO SCH (09:15)
[2022-04-16] MEDS: lisinopriL 5 MG TAB PO SCH (09:15)
[2022-04-16] MEDS: PANTOPRAZOLE 40MG TAB (PROTONIX) PO SCH ×2 (09:15→21:24)
[2022-04-16] MEDS: METOPROLOL SUCC *XL* 25MG TAB (TopROL *XL*) PO SCH (09:15)
[2022-04-16] MEDS: guaiFENesin 200 MG TAB PO SCH ×3 (09:15→21:00)
[2022-04-16] MEDS: SODIUM CHLORIDE NASAL 0.65% SPRAY BTL (OCEAN) SCH ×3 (09:16→21:00)
[2022-04-16] MEDS: CYANOCOBALAMIN 500 MCG TAB PO SCH (09:16)
[2022-04-16] MEDS: OXYMETAZOLINE 0.05% NASAL SPRAY (AFRIN) SCH (09:16)
[2022-04-16] MEDS: NYSTATIN 100,000 UNITS/GM TOPICAL PWD 15GM TOP SCH ×2 (09:16→21:25)
[2022-04-16 14:02] VITALS: BP 180/75
[2022-04-16 14:26] VITALS: BP 154/68
[2022-04-16 20:00] VITALS: BP 158/86
[2022-04-16] MEDS: SENNA 8.6 MG TAB (SENOKOT) PO SCH (21:00)
[2022-04-16] MEDS: LEVEMIR (INSULIN DETEMIR) 1 UNITS/0.01ML SC SCH (21:23)
[2022-04-16] MEDS: ATORVASTATIN 20 MG TAB PO SCH (21:23)
[2022-04-16] MEDS: RAMELTEON 8 MG TAB (ROZEREM) PO SCH (21:24)
[2022-04-16] MEDS: traMADol 50 MG TAB PO SCH (21:24)
[2022-04-16] MEDS: MONTELUKAST 10 MG TAB PO SCH (21:25)
[2022-04-16] MEDS: MICONAZOLE-7 VAGINAL 2% CREAM 47.7GM PV SCH (21:25)
[2022-04-17] MEDS: DICLOFENAC EPOLAMINE 1.3% PATCH TOP SCH ×2 (05:03→15:02)
[2022-04-17] MEDS: LEVOTHYROXINE 25MCG TABLET (0.025MG) PO SCH (05:03)
[2022-04-17 06:00] VITALS: BP 162/86
[2022-04-17 06:22] VITALS: BP 130/68
[2022-04-17] MEDS: HEPARIN SOD (PORCINE) 5000UNITS/ML 1ML VIAL/SYRINGE SC SCH ×3 (06:33→21:34)
[2022-04-17 07:27] LABS: BASO % 0.6 % (0.0-1.0); EOS # 0.1 10^3/uL (0.0-0.5); EOS % 2.2 % (0.0-3.0); HEMATOCRIT 33.7 % (36.0-47.0); HEMOGLOBIN 10.4 g/dl (12.0-15.5); LYMPH # 0.8 10^3/uL (1.5-5.0); LYMPH % 12.6 % (24.0-44.0); MEAN CORPUSCULAR HEMOGLOBIN 27.4 pg (27.0-33.0); MEAN CORPUSCULAR HGB CONC 30.9 g/dl (32.0-36.5); MEAN CORPUSCULAR VOLUME 88.9 fl (80.0-96.0); MONO # 0.5 10^3/uL (0.0-0.8); MONO % 7.6 % (2.0-8.0); NEUTROPHILS # 4.8 10^3/uL (1.5-8.5); NEUTROPHILS % 76.2 % (36.0-66.0); PLATELET COUNT, AUTOMATED 187 10^3/uL (150-450); RED BLOOD COUNT 3.79 10^6/uL (4.00-5.40); WHITE BLOOD COUNT 6.3 10^3/uL (4.0-10.0)
[2022-04-17 08:07] LABS: CALCIUM LEVEL 8.8 MG/DL (8.3-10.6); CREATININE FOR GFR 1.13 MG/DL (0.55-1.30); GLOMERULAR FILTRATION RATE 51.1 (>45); POTASSIUM SERUM 4.8 MMOL/L (3.5-5.1)
[2022-04-17] MEDS: SYMBICORT 160/4.5MCG INHALER 6GM INH SCH ×2 (08:35→19:27)
[2022-04-17] MEDS: CYANOCOBALAMIN 500 MCG TAB PO SCH (08:43)
[2022-04-17] MEDS: ASPIRIN 81MG ENTERIC TABLET PO SCH (08:43)
[2022-04-17] MEDS: BACLOFEN 5MG PER 1/2 TABLET PO SCH (08:43)
[2022-04-17] MEDS: DULoxetine 20MG CAP (CYMBALTA) PO SCH (08:43)
[2022-04-17] MEDS: FENOFIBRATE 145MG TABLET (TRICOR) PO SCH (08:43)
[2022-04-17] MEDS: CLOPIDOGREL 75 MG TAB PO SCH (08:43)
[2022-04-17] MEDS: SIMETHICONE 80MG CHEW TAB PO SCH ×3 (08:43→21:17)
[2022-04-17] MEDS: amLODIPine 5 MG TAB PO SCH (08:44)
[2022-04-17] MEDS: METOPROLOL SUCC *XL* 25MG TAB (TopROL *XL*) PO SCH (08:44)
[2022-04-17] MEDS: LORATADINE 10 MG TAB PO SCH (08:44)
[2022-04-17] MEDS: lisinopriL 5 MG TAB PO SCH (08:44)
[2022-04-17] MEDS: PANTOPRAZOLE 40MG TAB (PROTONIX) PO SCH ×2 (08:44→21:16)
[2022-04-17] MEDS: DOCUSATE SODIUM 100MG CAPSULE PO SCH ×2 (08:45→21:00)
[2022-04-17] MEDS: traMADol 50 MG TAB PO PRN (08:45)
[2022-04-17] MEDS: MIRALAX *UNIT DOSE* 17GM PACKET PO SCH (08:46)
[2022-04-17] MEDS: guaiFENesin 200 MG TAB PO SCH ×3 (08:46→21:16)
[2022-04-17] MEDS: NYSTATIN 100,000 UNITS/GM TOPICAL PWD 15GM TOP SCH ×2 (08:47→21:12)
[2022-04-17] MEDS: INSULIN LISPRO (NovoLOG) PER UNIT SC SCH ×4 (08:47→21:00)
[2022-04-17] MEDS: SODIUM CHLORIDE NASAL 0.65% SPRAY BTL (OCEAN) SCH ×3 (08:47→21:12)
[2022-04-17] MEDS: MAALOX 30 ML SUSP *UDC PO PRN (11:35)
[2022-04-17] MEDS: ACETAMINOPHEN TAB 650MG DOSE (2X325MG) PO PRN (11:36)
[2022-04-17 14:00] VITALS: BP 160/68
[2022-04-17 15:02] VITALS: BP 160/68
[2022-04-17] MEDS: LIDOCAINE 5% (LIDODERM) PATCH TD SCH (15:04)
[2022-04-17 19:50] VITALS: BP 146/60
[2022-04-17] MEDS: SENNA 8.6 MG TAB (SENOKOT) PO SCH (21:00)
[2022-04-17] MEDS: LEVEMIR (INSULIN DETEMIR) 1 UNITS/0.01ML SC SCH (21:12)
[2022-04-17] MEDS: MICONAZOLE-7 VAGINAL 2% CREAM 47.7GM PV SCH (21:14)
[2022-04-17] MEDS: traMADol 50 MG TAB PO SCH (21:15)
[2022-04-17] MEDS: RAMELTEON 8 MG TAB (ROZEREM) PO SCH (21:16)
[2022-04-17] MEDS: ATORVASTATIN 20 MG TAB PO SCH (21:16)
[2022-04-17] MEDS: MONTELUKAST 10 MG TAB PO SCH (21:17)
[2022-04-18 05:24] VITALS: BP 143/78
[2022-04-18] MEDS: DICLOFENAC EPOLAMINE 1.3% PATCH TOP SCH ×2 (06:11→17:20)
[2022-04-18] MEDS: LEVOTHYROXINE 25MCG TABLET (0.025MG) PO SCH (06:12)
[2022-04-18] MEDS: HEPARIN SOD (PORCINE) 5000UNITS/ML 1ML VIAL/SYRINGE SC SCH ×2 (06:12→21:06)
[2022-04-18] MEDS: SYMBICORT 160/4.5MCG INHALER 6GM INH SCH ×2 (07:10→19:57)
[2022-04-18] MEDS: INSULIN LISPRO (NovoLOG) PER UNIT SC SCH ×4 (08:44→21:00)
[2022-04-18] MEDS: DULoxetine 20MG CAP (CYMBALTA) PO SCH (08:45)
[2022-04-18] MEDS: SIMETHICONE 80MG CHEW TAB PO SCH ×3 (08:45→21:09)
[2022-04-18] MEDS: BACLOFEN 5MG PER 1/2 TABLET PO SCH (08:45)
[2022-04-18] MEDS: PANTOPRAZOLE 40MG TAB (PROTONIX) PO SCH ×2 (08:45→21:07)
[2022-04-18] MEDS: FENOFIBRATE 145MG TABLET (TRICOR) PO SCH (08:45)
[2022-04-18] MEDS: DOCUSATE SODIUM 100MG CAPSULE PO SCH ×2 (08:45→21:07)
[2022-04-18] MEDS: CLOPIDOGREL 75 MG TAB PO SCH (08:45)
[2022-04-18] MEDS: CYANOCOBALAMIN 500 MCG TAB PO SCH (08:45)
[2022-04-18] MEDS: ASPIRIN 81MG ENTERIC TABLET PO SCH (08:45)
[2022-04-18] MEDS: LORATADINE 10 MG TAB PO SCH (08:45)
[2022-04-18] MEDS: amLODIPine 5 MG TAB PO SCH (08:46)
[2022-04-18] MEDS: METOPROLOL SUCC *XL* 25MG TAB (TopROL *XL*) PO SCH (08:46)
[2022-04-18] MEDS: MAALOX 30 ML SUSP *UDC PO PRN (08:46)
[2022-04-18] MEDS: lisinopriL 5 MG TAB PO SCH (08:46)
[2022-04-18] MEDS: ACETAMINOPHEN TAB 650MG DOSE (2X325MG) PO PRN (08:47)
[2022-04-18] MEDS: MIRALAX *UNIT DOSE* 17GM PACKET PO SCH (08:48)
[2022-04-18] MEDS: SODIUM CHLORIDE NASAL 0.65% SPRAY BTL (OCEAN) SCH ×3 (08:48→21:07)
[2022-04-18] MEDS: guaiFENesin 200 MG TAB PO SCH ×3 (08:48→21:06)
[2022-04-18] MEDS: LIDOCAINE 5% (LIDODERM) PATCH TD SCH (08:48)
[2022-04-18] MEDS: NYSTATIN 100,000 UNITS/GM TOPICAL PWD 15GM TOP SCH ×2 (08:49→21:07)
[2022-04-18 14:00] VITALS: BP 148/82
[2022-04-18 20:00] VITALS: BP 194/90
[2022-04-18] MEDS ORDERED: amLODIPine 5 MG TAB PO ONE (20:20)
[2022-04-18] MEDS ORDERED: CEPACOL LOZENGE PO PRN (20:20)
[2022-04-18] MEDS: traMADol 50 MG TAB PO SCH (21:05)
[2022-04-18] MEDS: MONTELUKAST 10 MG TAB PO SCH (21:06)
[2022-04-18] MEDS: RAMELTEON 8 MG TAB (ROZEREM) PO SCH (21:06)
[2022-04-18] MEDS: ATORVASTATIN 20 MG TAB PO SCH (21:07)
[2022-04-18] MEDS: SENNA 8.6 MG TAB (SENOKOT) PO SCH (21:07)
[2022-04-18] MEDS: LEVEMIR (INSULIN DETEMIR) 1 UNITS/0.01ML SC SCH (21:08)
[2022-04-18] MEDS: MICONAZOLE-7 VAGINAL 2% CREAM 47.7GM PV SCH (21:09)
[2022-04-18] MEDS ORDERED: **hydrALAZINE** 50 MG TAB PO ONE (23:00)
[2022-04-19] VITALS (7 sets, daily range): BP systolic 151–190; BP diastolic 64–80
[2022-04-19] MEDS ORDERED: CHLORASEPTIC SPRAY MT PRN (00:15)
[2022-04-19] MEDS: DICLOFENAC EPOLAMINE 1.3% PATCH TOP SCH ×2 (05:29→17:18)
[2022-04-19] MEDS: LEVOTHYROXINE 25MCG TABLET (0.025MG) PO SCH (05:30)
[2022-04-19] MEDS: lisinopriL 5 MG TAB PO SCH (05:31)
[2022-04-19] MEDS: METOPROLOL SUCC *XL* 25MG TAB (TopROL *XL*) PO SCH (05:31)
[2022-04-19] MEDS: amLODIPine 5 MG TAB PO SCH (05:32)
[2022-04-19 06:22] LABS: BASO % 0.4 % (0.0-1.0); EOS # 0.1 10^3/uL (0.0-0.5); EOS % 1.6 % (0.0-3.0); HEMATOCRIT 33.3 % (36.0-47.0); HEMOGLOBIN 10.4 g/dl (12.0-15.5); MEAN CORPUSCULAR HEMOGLOBIN 27.7 pg (27.0-33.0); MEAN CORPUSCULAR HGB CONC 31.2 g/dl (32.0-36.5); MEAN CORPUSCULAR VOLUME 88.6 fl (80.0-96.0); MONO # 0.6 10^3/uL (0.0-0.8); MONO % 11.3 % (2.0-8.0); NEUTROPHILS # 3.3 10^3/uL (1.5-8.5); NEUTROPHILS % 66.3 % (36.0-66.0); PLATELET COUNT, AUTOMATED 173 10^3/uL (150-450); RED BLOOD COUNT 3.76 10^6/uL (4.00-5.40)
[2022-04-19 06:49] LABS: CALCIUM LEVEL 8.8 MG/DL (8.3-10.6); CREATININE FOR GFR 1.37 MG/DL (0.55-1.30); GLOMERULAR FILTRATION RATE 40.9 (>45); POTASSIUM SERUM 4.8 MMOL/L (3.5-5.1)
[2022-04-19] MEDS: INSULIN LISPRO (NovoLOG) PER UNIT SC SCH ×4 (07:30→20:28)
[2022-04-19] MEDS: traMADol 50 MG TAB PO PRN ×2 (08:28→17:16)
[2022-04-19] MEDS: SYMBICORT 160/4.5MCG INHALER 6GM INH SCH ×2 (09:05→21:01)
[2022-04-19] MEDS ORDERED: NS 1,000 ML IV ONE (09:35)
[2022-04-19] MEDS: MAALOX 30 ML SUSP *UDC PO PRN (10:14)
[2022-04-19] MEDS: MIRALAX *UNIT DOSE* 17GM PACKET PO SCH (10:15)
[2022-04-19] MEDS: LIDOCAINE 5% (LIDODERM) PATCH TD SCH (10:15)
[2022-04-19] MEDS: HEPARIN SOD (PORCINE) 5000UNITS/ML 1ML VIAL/SYRINGE SC SCH ×2 (10:15→20:27)
[2022-04-19] MEDS: CLOPIDOGREL 75 MG TAB PO SCH (10:16)
[2022-04-19] MEDS: DULoxetine 20MG CAP (CYMBALTA) PO SCH (10:16)
[2022-04-19] MEDS: LORATADINE 10 MG TAB PO SCH (10:16)
[2022-04-19] MEDS: DOCUSATE SODIUM 100MG CAPSULE PO SCH ×2 (10:16→20:25)
[2022-04-19] MEDS: FENOFIBRATE 145MG TABLET (TRICOR) PO SCH (10:16)
[2022-04-19] MEDS: CYANOCOBALAMIN 500 MCG TAB PO SCH (10:16)
[2022-04-19] MEDS: guaiFENesin 200 MG TAB PO SCH ×3 (10:17→20:27)
[2022-04-19] MEDS: PANTOPRAZOLE 40MG TAB (PROTONIX) PO SCH ×2 (10:17→20:26)
[2022-04-19] MEDS: SIMETHICONE 80MG CHEW TAB PO SCH ×3 (10:17→20:26)
[2022-04-19] MEDS: ASPIRIN 81MG ENTERIC TABLET PO SCH (10:17)
[2022-04-19] MEDS: SODIUM CHLORIDE NASAL 0.65% SPRAY BTL (OCEAN) SCH ×3 (10:21→20:28)
[2022-04-19] MEDS: NYSTATIN 100,000 UNITS/GM TOPICAL PWD 15GM TOP SCH ×2 (10:22→20:01)
[2022-04-19] MEDS: **hydrALAZINE HCL** 25 MG TAB PO SCH ×3 (10:29→20:26)
[2022-04-19] MEDS ORDERED: REMDESIVIR 200 MG in NS 250 ML IV ONE (20:00)
[2022-04-19] MEDS: MICONAZOLE-7 VAGINAL 2% CREAM 47.7GM PV SCH (20:01)
[2022-04-19] MEDS: MONTELUKAST 10 MG TAB PO SCH (20:25)
[2022-04-19] MEDS: SENNA 8.6 MG TAB (SENOKOT) PO SCH (20:25)
[2022-04-19] MEDS: ATORVASTATIN 20 MG TAB PO SCH (20:27)
[2022-04-19] MEDS: RAMELTEON 8 MG TAB (ROZEREM) PO SCH (20:27)
[2022-04-19] MEDS: LEVEMIR (INSULIN DETEMIR) 1 UNITS/0.01ML SC SCH (20:28)
[2022-04-19] MEDS: traMADol 50 MG TAB PO SCH (20:28)
[2022-04-19] MEDS ORDERED: SODIUM CHLORIDE 0.9% INJ 10 ML SYR IV ONE (21:00)
[2022-04-20] MEDS: LEVOTHYROXINE 25MCG TABLET (0.025MG) PO SCH (05:31)
[2022-04-20] MEDS: traMADol 50 MG TAB PO PRN ×2 (05:34→14:31)
[2022-04-20] MEDS: DICLOFENAC EPOLAMINE 1.3% PATCH TOP SCH ×2 (05:35→18:00)
[2022-04-20 06:00] VITALS: BP 138/82
[2022-04-20] MEDS: SYMBICORT 160/4.5MCG INHALER 6GM INH SCH ×2 (07:24→20:53)
[2022-04-20 07:25] LABS: ALBUMIN 2.7 G/DL (3.2-5.2); BILIRUBIN,DIRECT 0.1 MG/DL (<0.4); BILIRUBIN,TOTAL 0.3 MG/DL (0.3-1.2); CALCIUM LEVEL 8.4 MG/DL (8.3-10.6); CREATININE FOR GFR 1.42 MG/DL (0.55-1.30); GLOMERULAR FILTRATION RATE 39.3 (>45); POTASSIUM SERUM 4.7 MMOL/L (3.5-5.1)
[2022-04-20] MEDS: INSULIN LISPRO (NovoLOG) PER UNIT SC SCH ×4 (07:30→20:09)
[2022-04-20] MEDS: HEPARIN SOD (PORCINE) 5000UNITS/ML 1ML VIAL/SYRINGE SC SCH ×2 (08:16→21:49)
[2022-04-20] MEDS: CYANOCOBALAMIN 500 MCG TAB PO SCH (08:16)
[2022-04-20] MEDS: PANTOPRAZOLE 40MG TAB (PROTONIX) PO SCH ×2 (08:16→21:48)
[2022-04-20] MEDS: FENOFIBRATE 145MG TABLET (TRICOR) PO SCH (08:16)
[2022-04-20] MEDS: METOPROLOL SUCC *XL* 25MG TAB (TopROL *XL*) PO SCH (08:18)
[2022-04-20] MEDS: amLODIPine 5 MG TAB PO SCH (08:18)
[2022-04-20] MEDS: ASPIRIN 81MG ENTERIC TABLET PO SCH (08:19)
[2022-04-20] MEDS: LORATADINE 10 MG TAB PO SCH (08:19)
[2022-04-20] MEDS: SIMETHICONE 80MG CHEW TAB PO SCH ×3 (08:19→21:48)
[2022-04-20] MEDS: guaiFENesin 200 MG TAB PO SCH ×3 (08:19→21:49)
[2022-04-20] MEDS: DOCUSATE SODIUM 100MG CAPSULE PO SCH ×2 (08:19→21:48)
[2022-04-20] MEDS: DULoxetine 20MG CAP (CYMBALTA) PO SCH (08:19)
[2022-04-20] MEDS: CLOPIDOGREL 75 MG TAB PO SCH (08:19)
[2022-04-20] MEDS: **hydrALAZINE HCL** 25 MG TAB PO SCH ×3 (08:19→21:49)
[2022-04-20] MEDS: LIDOCAINE 5% (LIDODERM) PATCH TD SCH (08:20)
[2022-04-20] MEDS: SODIUM CHLORIDE NASAL 0.65% SPRAY BTL (OCEAN) SCH ×3 (08:20→21:55)
[2022-04-20] MEDS: NYSTATIN 100,000 UNITS/GM TOPICAL PWD 15GM TOP SCH ×2 (08:21→21:55)
[2022-04-20] MEDS: MIRALAX *UNIT DOSE* 17GM PACKET PO SCH (08:24)
[2022-04-20] MEDS ORDERED: NS 1,000 ML IV SCH (11:00)
[2022-04-20] MEDS: MAALOX 30 ML SUSP *UDC PO PRN ×2 (11:43→23:25)
[2022-04-20] MEDS ORDERED: FOSFOMYCIN TROMETHAMINE 3 GM POWDER PACKET (MONUROL) PO ONE (12:00)
[2022-04-20 14:34] VITALS: BP 133/60
[2022-04-20 16:34] VITALS: BP 148/84
[2022-04-20 20:00] VITALS: BP 134/54
[2022-04-20] MEDS: REMDESIVIR 100 MG in NS 250 ML IV SCH (20:05)
[2022-04-20] MEDS: SENNA 8.6 MG TAB (SENOKOT) PO SCH (21:48)
[2022-04-20] MEDS: RAMELTEON 8 MG TAB (ROZEREM) PO SCH (21:48)
[2022-04-20] MEDS: MONTELUKAST 10 MG TAB PO SCH (21:48)
[2022-04-20] MEDS: ATORVASTATIN 20 MG TAB PO SCH (21:49)
[2022-04-20] MEDS: LEVEMIR (INSULIN DETEMIR) 1 UNITS/0.01ML SC SCH (21:50)
[2022-04-20] MEDS: traMADol 50 MG TAB PO SCH (21:50)
[2022-04-20] MEDS: SODIUM CHLORIDE 0.9% INJ 10 ML SYR IV SCH (21:55)
[2022-04-20] MEDS: MICONAZOLE-7 VAGINAL 2% CREAM 47.7GM PV SCH (21:57)
[2022-04-20] MEDS: ANALGESIC BALM CRM 3OZ TOP PRN (22:02)
[2022-04-21] MEDS: DICLOFENAC EPOLAMINE 1.3% PATCH TOP SCH ×2 (05:33→17:42)
[2022-04-21] MEDS: LEVOTHYROXINE 25MCG TABLET (0.025MG) PO SCH (05:34)
[2022-04-21 06:00] VITALS: BP 160/60
[2022-04-21 06:26] LABS: BASO % 0.4 % (0.0-1.0); EOS # 0.1 10^3/uL (0.0-0.5); EOS % 2.6 % (0.0-3.0); HEMATOCRIT 30.6 % (36.0-47.0); HEMOGLOBIN 9.4 g/dl (12.0-15.5); LYMPH # 1.2 10^3/uL (1.5-5.0); LYMPH % 26.7 % (24.0-44.0); MEAN CORPUSCULAR HEMOGLOBIN 27.6 pg (27.0-33.0); MEAN CORPUSCULAR HGB CONC 30.7 g/dl (32.0-36.5); MONO # 0.5 10^3/uL (0.0-0.8); MONO % 9.8 % (2.0-8.0); NEUTROPHILS # 2.8 10^3/uL (1.5-8.5); NEUTROPHILS % 60.1 % (36.0-66.0); PLATELET COUNT, AUTOMATED 168 10^3/uL (150-450); WHITE BLOOD COUNT 4.6 10^3/uL (4.0-10.0)
[2022-04-21 06:53] LABS: CALCIUM LEVEL 8.2 MG/DL (8.3-10.6); CREATININE FOR GFR 1.27 MG/DL (0.55-1.30); GLOMERULAR FILTRATION RATE 44.7 (>45); POTASSIUM SERUM 4.6 MMOL/L (3.5-5.1)
[2022-04-21] MEDS: INSULIN LISPRO (NovoLOG) PER UNIT SC SCH ×4 (07:30→20:47)
[2022-04-21] MEDS: SYMBICORT 160/4.5MCG INHALER 6GM INH SCH ×2 (07:40→19:30)
[2022-04-21] MEDS: NYSTATIN 100,000 UNITS/GM TOPICAL PWD 15GM TOP SCH ×2 (09:39→21:37)
[2022-04-21] MEDS: SODIUM CHLORIDE NASAL 0.65% SPRAY BTL (OCEAN) SCH ×3 (09:39→21:37)
[2022-04-21] MEDS: CLOPIDOGREL 75 MG TAB PO SCH (09:50)
[2022-04-21] MEDS: FENOFIBRATE 145MG TABLET (TRICOR) PO SCH (09:50)
[2022-04-21] MEDS: DULoxetine 20MG CAP (CYMBALTA) PO SCH (09:50)
[2022-04-21] MEDS: DOCUSATE SODIUM 100MG CAPSULE PO SCH ×2 (09:50→21:00)
[2022-04-21] MEDS: LORATADINE 10 MG TAB PO SCH (09:50)
[2022-04-21] MEDS: ASPIRIN 81MG ENTERIC TABLET PO SCH (09:50)
[2022-04-21] MEDS: SIMETHICONE 80MG CHEW TAB PO SCH ×3 (09:50→21:34)
[2022-04-21] MEDS: guaiFENesin 200 MG TAB PO SCH ×3 (09:50→21:34)
[2022-04-21] MEDS: CYANOCOBALAMIN 500 MCG TAB PO SCH (09:50)
[2022-04-21] MEDS: PANTOPRAZOLE 40MG TAB (PROTONIX) PO SCH ×2 (09:50→21:34)
[2022-04-21] MEDS: amLODIPine 5 MG TAB PO SCH (09:52)
[2022-04-21] MEDS: **hydrALAZINE HCL** 25 MG TAB PO SCH ×3 (09:52→21:34)
[2022-04-21] MEDS: MIRALAX *UNIT DOSE* 17GM PACKET PO SCH (09:53)
[2022-04-21] MEDS: METOPROLOL SUCC *XL* 25MG TAB (TopROL *XL*) PO SCH (09:53)
[2022-04-21] MEDS: HEPARIN SOD (PORCINE) 5000UNITS/ML 1ML VIAL/SYRINGE SC SCH ×2 (09:54→21:33)
[2022-04-21] MEDS: LIDOCAINE 5% (LIDODERM) PATCH TD SCH (09:54)
[2022-04-21] MEDS: MAALOX 30 ML SUSP *UDC PO PRN (12:58)
[2022-04-21 14:00] VITALS: BP 138/68
[2022-04-21] MEDS: AZITHROMYCIN 250MG TABLET PO SCH (17:41)
[2022-04-21 20:00] VITALS: BP 144/74
[2022-04-21] MEDS: REMDESIVIR 100 MG in NS 250 ML IV SCH (20:22)
[2022-04-21] MEDS: ANALGESIC BALM CRM 3OZ TOP PRN (20:24)
[2022-04-21] MEDS: LEVEMIR (INSULIN DETEMIR) 1 UNITS/0.01ML SC SCH (20:48)
[2022-04-21] MEDS: SENNA 8.6 MG TAB (SENOKOT) PO SCH (21:00)
[2022-04-21] MEDS: CARBAMIDE PEROXIDE 6.5% OTIC SOLN 15ML AD SCH (21:32)
[2022-04-21] MEDS: ATORVASTATIN 20 MG TAB PO SCH (21:32)
[2022-04-21] MEDS: MONTELUKAST 10 MG TAB PO SCH (21:34)
[2022-04-21] MEDS: RAMELTEON 8 MG TAB (ROZEREM) PO SCH (21:34)
[2022-04-21] MEDS: traMADol 50 MG TAB PO SCH (21:36)
[2022-04-21] MEDS: MICONAZOLE-7 VAGINAL 2% CREAM 47.7GM PV SCH (21:36)
[2022-04-21] MEDS: SODIUM CHLORIDE 0.9% INJ 10 ML SYR IV SCH (21:38)
[2022-04-22] MEDS: LEVOTHYROXINE 25MCG TABLET (0.025MG) PO SCH (05:30)
[2022-04-22] MEDS: DICLOFENAC EPOLAMINE 1.3% PATCH TOP SCH ×2 (05:30→17:50)
[2022-04-22 06:00] VITALS: BP 158/88
[2022-04-22] MEDS: INSULIN LISPRO (NovoLOG) PER UNIT SC SCH ×4 (07:30→21:00)
[2022-04-22] MEDS: SYMBICORT 160/4.5MCG INHALER 6GM INH SCH ×2 (07:49→19:34)
[2022-04-22] MEDS: MIRALAX *UNIT DOSE* 17GM PACKET PO SCH ×2 (09:00→09:25)
[2022-04-22] MEDS: DOCUSATE SODIUM 100MG CAPSULE PO SCH ×2 (09:00→21:00)
[2022-04-22] MEDS: guaiFENesin 200 MG TAB PO SCH ×3 (09:23→21:38)
[2022-04-22] MEDS: SIMETHICONE 80MG CHEW TAB PO SCH ×3 (09:23→21:37)
[2022-04-22] MEDS: HEPARIN SOD (PORCINE) 5000UNITS/ML 1ML VIAL/SYRINGE SC SCH ×2 (09:23→21:39)
[2022-04-22] MEDS: ASPIRIN 81MG ENTERIC TABLET PO SCH (09:24)
[2022-04-22] MEDS: DULoxetine 20MG CAP (CYMBALTA) PO SCH (09:24)
[2022-04-22] MEDS: METOPROLOL SUCC *XL* 25MG TAB (TopROL *XL*) PO SCH (09:24)
[2022-04-22] MEDS: CLOPIDOGREL 75 MG TAB PO SCH (09:24)
[2022-04-22] MEDS: CYANOCOBALAMIN 500 MCG TAB PO SCH (09:24)
[2022-04-22] MEDS: PANTOPRAZOLE 40MG TAB (PROTONIX) PO SCH ×2 (09:24→21:38)
[2022-04-22] MEDS: LORATADINE 10 MG TAB PO SCH (09:24)
[2022-04-22] MEDS: **hydrALAZINE HCL** 25 MG TAB PO SCH ×3 (09:24→21:45)
[2022-04-22] MEDS: FENOFIBRATE 145MG TABLET (TRICOR) PO SCH (09:24)
[2022-04-22] MEDS: amLODIPine 5 MG TAB PO SCH (09:25)
[2022-04-22] MEDS: LIDOCAINE 5% (LIDODERM) PATCH TD SCH (09:26)
[2022-04-22] MEDS: SODIUM CHLORIDE NASAL 0.65% SPRAY BTL (OCEAN) SCH ×3 (09:26→21:43)
[2022-04-22] MEDS: NYSTATIN 100,000 UNITS/GM TOPICAL PWD 15GM TOP SCH ×2 (09:27→21:44)
[2022-04-22] MEDS: CARBAMIDE PEROXIDE 6.5% OTIC SOLN 15ML AD SCH ×2 (09:27→21:43)
[2022-04-22] MEDS: traMADol 50 MG TAB PO PRN (10:45)
[2022-04-22 14:00] VITALS: BP 165/72
[2022-04-22 15:54] VITALS: BP 150/84
[2022-04-22] MEDS: AZITHROMYCIN 250MG TABLET PO SCH (17:50)
[2022-04-22] MEDS: REMDESIVIR 100 MG in NS 250 ML IV SCH (19:57)
[2022-04-22] MEDS: traMADol 50 MG TAB PO SCH (19:57)
[2022-04-22 20:00] VITALS: BP 160/84
[2022-04-22] MEDS: SENNA 8.6 MG TAB (SENOKOT) PO SCH (21:00)
[2022-04-22] MEDS: RAMELTEON 8 MG TAB (ROZEREM) PO SCH (21:37)
[2022-04-22] MEDS: MONTELUKAST 10 MG TAB PO SCH (21:38)
[2022-04-22] MEDS: ATORVASTATIN 20 MG TAB PO SCH (21:38)
[2022-04-22] MEDS: LEVEMIR (INSULIN DETEMIR) 1 UNITS/0.01ML SC SCH (21:41)
[2022-04-22] MEDS: SODIUM CHLORIDE 0.9% INJ 10 ML SYR IV SCH (21:42)
[2022-04-23] MEDS: DICLOFENAC EPOLAMINE 1.3% PATCH TOP SCH ×2 (05:26→17:19)
[2022-04-23] MEDS: LEVOTHYROXINE 25MCG TABLET (0.025MG) PO SCH (05:26)
[2022-04-23 06:00] VITALS: BP 148/74
[2022-04-23] MEDS: SYMBICORT 160/4.5MCG INHALER 6GM INH SCH ×2 (07:29→20:02)
[2022-04-23] MEDS: INSULIN LISPRO (NovoLOG) PER UNIT SC SCH ×4 (07:30→21:00)
[2022-04-23] MEDS: DOCUSATE SODIUM 100MG CAPSULE PO SCH ×2 (09:00→21:24)
[2022-04-23] MEDS: MIRALAX *UNIT DOSE* 17GM PACKET PO SCH (09:00)
[2022-04-23] MEDS: LORATADINE 10 MG TAB PO SCH (10:08)
[2022-04-23] MEDS: **hydrALAZINE HCL** 25 MG TAB PO SCH ×3 (10:08→21:24)
[2022-04-23] MEDS: SIMETHICONE 80MG CHEW TAB PO SCH ×3 (10:09→21:25)
[2022-04-23] MEDS: amLODIPine 5 MG TAB PO SCH (10:09)
[2022-04-23] MEDS: DULoxetine 20MG CAP (CYMBALTA) PO SCH (10:09)
[2022-04-23] MEDS: ASPIRIN 81MG ENTERIC TABLET PO SCH (10:09)
[2022-04-23] MEDS: CLOPIDOGREL 75 MG TAB PO SCH (10:10)
[2022-04-23] MEDS: guaiFENesin 200 MG TAB PO SCH ×3 (10:10→21:00)
[2022-04-23] MEDS: PANTOPRAZOLE 40MG TAB (PROTONIX) PO SCH ×2 (10:10→21:24)
[2022-04-23] MEDS: FENOFIBRATE 145MG TABLET (TRICOR) PO SCH (10:11)
[2022-04-23] MEDS: METOPROLOL SUCC *XL* 25MG TAB (TopROL *XL*) PO SCH (10:11)
[2022-04-23] MEDS: CYANOCOBALAMIN 500 MCG TAB PO SCH (10:11)
[2022-04-23] MEDS: LIDOCAINE 5% (LIDODERM) PATCH TD SCH (10:12)
[2022-04-23] MEDS: HEPARIN SOD (PORCINE) 5000UNITS/ML 1ML VIAL/SYRINGE SC SCH ×2 (10:12→21:23)
[2022-04-23] MEDS: NYSTATIN 100,000 UNITS/GM TOPICAL PWD 15GM TOP SCH ×2 (10:13→21:26)
[2022-04-23] MEDS: MAALOX 30 ML SUSP *UDC PO PRN (13:08)
[2022-04-23] MEDS: CARBAMIDE PEROXIDE 6.5% OTIC SOLN 15ML AD SCH ×2 (13:10→21:00)
[2022-04-23] MEDS: SODIUM CHLORIDE NASAL 0.65% SPRAY BTL (OCEAN) SCH ×3 (13:10→21:26)
[2022-04-23 14:00] VITALS: BP 132/72
[2022-04-23] MEDS: AZITHROMYCIN 250MG TABLET PO SCH (17:21)
[2022-04-23 20:00] VITALS: BP 144/74
[2022-04-23] MEDS: REMDESIVIR 100 MG in NS 250 ML IV SCH (21:10)
[2022-04-23] MEDS: LEVEMIR (INSULIN DETEMIR) 1 UNITS/0.01ML SC SCH (21:12)
[2022-04-23] MEDS: SENNA 8.6 MG TAB (SENOKOT) PO SCH (21:24)
[2022-04-23] MEDS: traMADol 50 MG TAB PO SCH (21:24)
[2022-04-23] MEDS: MONTELUKAST 10 MG TAB PO SCH (21:24)
[2022-04-23] MEDS: ATORVASTATIN 20 MG TAB PO SCH (21:25)
[2022-04-23] MEDS: ACETAMINOPHEN TAB 650MG DOSE (2X325MG) PO PRN (21:25)
[2022-04-23] MEDS: RAMELTEON 8 MG TAB (ROZEREM) PO SCH (21:25)
[2022-04-23] MEDS: SODIUM CHLORIDE 0.9% INJ 10 ML SYR IV SCH (21:57)
[2022-04-24 05:34] VITALS: BP 138/82
[2022-04-24] MEDS: LEVOTHYROXINE 25MCG TABLET (0.025MG) PO SCH (05:59)
[2022-04-24] MEDS: DICLOFENAC EPOLAMINE 1.3% PATCH TOP SCH ×2 (05:59→18:00)
[2022-04-24 06:43] LABS: BASO % 0.3 % (0.0-1.0); EOS # 0.2 10^3/uL (0.0-0.5); HEMATOCRIT 34.1 % (36.0-47.0); HEMOGLOBIN 10.4 g/dl (12.0-15.5); LYMPH # 1.7 10^3/uL (1.5-5.0); LYMPH % 29.8 % (24.0-44.0); MEAN CORPUSCULAR HEMOGLOBIN 27.4 pg (27.0-33.0); MEAN CORPUSCULAR HGB CONC 30.5 g/dl (32.0-36.5); MEAN CORPUSCULAR VOLUME 89.7 fl (80.0-96.0); MONO # 0.5 10^3/uL (0.0-0.8); MONO % 8.5 % (2.0-8.0); NEUTROPHILS # 3.3 10^3/uL (1.5-8.5); NEUTROPHILS % 57.5 % (36.0-66.0); PLATELET COUNT, AUTOMATED 204 10^3/uL (150-450); WHITE BLOOD COUNT 5.7 10^3/uL (4.0-10.0)
[2022-04-24 07:08] LABS: CALCIUM LEVEL 8.5 MG/DL (8.3-10.6); CREATININE FOR GFR 1.17 MG/DL (0.55-1.30); GLOMERULAR FILTRATION RATE 49.1 (>45); POTASSIUM SERUM 4.3 MMOL/L (3.5-5.1)
[2022-04-24] MEDS: INSULIN LISPRO (NovoLOG) PER UNIT SC SCH ×4 (07:30→21:00)
[2022-04-24] MEDS: SYMBICORT 160/4.5MCG INHALER 6GM INH SCH ×2 (07:44→19:49)
[2022-04-24] MEDS: guaiFENesin 200 MG TAB PO SCH ×3 (09:00→21:14)
[2022-04-24] MEDS: MIRALAX *UNIT DOSE* 17GM PACKET PO SCH (09:01)
[2022-04-24] MEDS: LIDOCAINE 5% (LIDODERM) PATCH TD SCH (09:03)
[2022-04-24] MEDS: NYSTATIN 100,000 UNITS/GM TOPICAL PWD 15GM TOP SCH ×2 (09:06→21:22)
[2022-04-24] MEDS: HEPARIN SOD (PORCINE) 5000UNITS/ML 1ML VIAL/SYRINGE SC SCH ×2 (09:07→21:20)
[2022-04-24] MEDS: FENOFIBRATE 145MG TABLET (TRICOR) PO SCH (09:08)
[2022-04-24] MEDS: LORATADINE 10 MG TAB PO SCH (09:08)
[2022-04-24] MEDS: DOCUSATE SODIUM 100MG CAPSULE PO SCH ×2 (09:08→21:13)
[2022-04-24] MEDS: CLOPIDOGREL 75 MG TAB PO SCH (09:08)
[2022-04-24] MEDS: ASPIRIN 81MG ENTERIC TABLET PO SCH (09:08)
[2022-04-24] MEDS: SIMETHICONE 80MG CHEW TAB PO SCH ×3 (09:08→21:19)
[2022-04-24] MEDS: CYANOCOBALAMIN 500 MCG TAB PO SCH (09:08)
[2022-04-24] MEDS: PANTOPRAZOLE 40MG TAB (PROTONIX) PO SCH ×2 (09:09→21:17)
[2022-04-24] MEDS: DULoxetine 20MG CAP (CYMBALTA) PO SCH (09:09)
[2022-04-24] MEDS: **hydrALAZINE HCL** 25 MG TAB PO SCH ×3 (09:09→21:18)
[2022-04-24] MEDS: amLODIPine 5 MG TAB PO SCH (09:10)
[2022-04-24] MEDS: METOPROLOL SUCC *XL* 25MG TAB (TopROL *XL*) PO SCH (09:10)
[2022-04-24] MEDS: SODIUM CHLORIDE NASAL 0.65% SPRAY BTL (OCEAN) SCH ×3 (09:11→21:22)
[2022-04-24] MEDS: CARBAMIDE PEROXIDE 6.5% OTIC SOLN 15ML AD SCH ×2 (09:12→21:22)
[2022-04-24] MEDS: traMADol 50 MG TAB PO PRN (09:27)
[2022-04-24] MEDS: MAALOX 30 ML SUSP *UDC PO PRN (12:43)
[2022-04-24 14:00] VITALS: BP 139/60
[2022-04-24 20:00] VITALS: BP 132/68
[2022-04-24] MEDS: ATORVASTATIN 20 MG TAB PO SCH (21:14)
[2022-04-24] MEDS: MONTELUKAST 10 MG TAB PO SCH (21:16)
[2022-04-24] MEDS: SENNA 8.6 MG TAB (SENOKOT) PO SCH (21:16)
[2022-04-24] MEDS: traMADol 50 MG TAB PO SCH (21:16)
[2022-04-24] MEDS: RAMELTEON 8 MG TAB (ROZEREM) PO SCH (21:20)
[2022-04-24] MEDS: LEVEMIR (INSULIN DETEMIR) 1 UNITS/0.01ML SC SCH (21:21)
[2022-04-25] MEDS: ACETAMINOPHEN TAB 650MG DOSE (2X325MG) PO PRN ×3 (04:19→21:48)
[2022-04-25 05:39] VITALS: BP 150/67
[2022-04-25] MEDS: LEVOTHYROXINE 25MCG TABLET (0.025MG) PO SCH (06:31)
[2022-04-25] MEDS: DICLOFENAC EPOLAMINE 1.3% PATCH TOP SCH ×2 (06:33→17:47)
[2022-04-25] MEDS: SYMBICORT 160/4.5MCG INHALER 6GM INH SCH ×2 (07:26→20:19)
[2022-04-25] MEDS: INSULIN LISPRO (NovoLOG) PER UNIT SC SCH ×4 (07:30→21:00)
[2022-04-25] MEDS: guaiFENesin 200 MG TAB PO SCH ×3 (09:00→21:50)
[2022-04-25] MEDS: MIRALAX *UNIT DOSE* 17GM PACKET PO SCH (10:23)
[2022-04-25] MEDS: LIDOCAINE 5% (LIDODERM) PATCH TD SCH (10:23)
[2022-04-25] MEDS: FENOFIBRATE 145MG TABLET (TRICOR) PO SCH (10:25)
[2022-04-25] MEDS: DULoxetine 20MG CAP (CYMBALTA) PO SCH (10:25)
[2022-04-25] MEDS: SIMETHICONE 80MG CHEW TAB PO SCH ×3 (10:25→21:50)
[2022-04-25] MEDS: HEPARIN SOD (PORCINE) 5000UNITS/ML 1ML VIAL/SYRINGE SC SCH ×2 (10:25→21:48)
[2022-04-25] MEDS: ASPIRIN 81MG ENTERIC TABLET PO SCH (10:26)
[2022-04-25] MEDS: CYANOCOBALAMIN 500 MCG TAB PO SCH (10:26)
[2022-04-25] MEDS: **hydrALAZINE HCL** 25 MG TAB PO SCH ×3 (10:27→21:50)
[2022-04-25] MEDS: PANTOPRAZOLE 40MG TAB (PROTONIX) PO SCH ×2 (10:28→21:50)
[2022-04-25] MEDS: METOPROLOL SUCC *XL* 25MG TAB (TopROL *XL*) PO SCH (10:28)
[2022-04-25] MEDS: DOCUSATE SODIUM 100MG CAPSULE PO SCH (10:28)
[2022-04-25] MEDS: LORATADINE 10 MG TAB PO SCH (10:28)
[2022-04-25] MEDS: CLOPIDOGREL 75 MG TAB PO SCH (10:28)
[2022-04-25] MEDS: amLODIPine 5 MG TAB PO SCH (10:29)
[2022-04-25] MEDS: SODIUM CHLORIDE NASAL 0.65% SPRAY BTL (OCEAN) SCH ×3 (10:29→21:51)
[2022-04-25] MEDS: CARBAMIDE PEROXIDE 6.5% OTIC SOLN 15ML AD SCH (10:30)
[2022-04-25] MEDS: NYSTATIN 100,000 UNITS/GM TOPICAL PWD 15GM TOP SCH ×2 (10:30→21:52)
[2022-04-25] MEDS: MAALOX 30 ML SUSP *UDC PO PRN (11:07)
[2022-04-25] MEDS: traMADol 50 MG TAB PO PRN (12:08)
[2022-04-25 14:00] VITALS: BP 138/64
[2022-04-25 20:00] VITALS: BP 162/70
[2022-04-25] MEDS: MONTELUKAST 10 MG TAB PO SCH (21:49)
[2022-04-25] MEDS: RAMELTEON 8 MG TAB (ROZEREM) PO SCH (21:49)
[2022-04-25] MEDS: traMADol 50 MG TAB PO SCH (21:49)
[2022-04-25] MEDS: oxyBUTYnin 5 MG TAB PO SCH (21:50)
[2022-04-25] MEDS: ATORVASTATIN 20 MG TAB PO SCH (21:50)
[2022-04-25] MEDS: LEVEMIR (INSULIN DETEMIR) 1 UNITS/0.01ML SC SCH (21:51)
[2022-04-26 06:00] VITALS: BP 162/68
[2022-04-26] MEDS: LEVOTHYROXINE 25MCG TABLET (0.025MG) PO SCH (06:40)
[2022-04-26] MEDS: DICLOFENAC EPOLAMINE 1.3% PATCH TOP SCH ×2 (06:41→11:25)
[2022-04-26] MEDS: INSULIN LISPRO (NovoLOG) PER UNIT SC SCH ×4 (07:30→20:29)
[2022-04-26 07:33] LABS: BASO % 0.4 % (0.0-1.0); EOS # 0.2 10^3/uL (0.0-0.5); EOS % 2.7 % (0.0-3.0); HEMATOCRIT 33.4 % (36.0-47.0); HEMOGLOBIN 10.1 g/dl (12.0-15.5); LYMPH # 1.2 10^3/uL (1.5-5.0); LYMPH % 21.5 % (24.0-44.0); MEAN CORPUSCULAR HGB CONC 30.2 g/dl (32.0-36.5); MEAN CORPUSCULAR VOLUME 89.3 fl (80.0-96.0); MONO # 0.5 10^3/uL (0.0-0.8); MONO % 9.4 % (2.0-8.0); NEUTROPHILS # 3.7 10^3/uL (1.5-8.5); NEUTROPHILS % 64.9 % (36.0-66.0); PLATELET COUNT, AUTOMATED 193 10^3/uL (150-450); RED BLOOD COUNT 3.74 10^6/uL (4.00-5.40); WHITE BLOOD COUNT 5.6 10^3/uL (4.0-10.0)
[2022-04-26] MEDS: SYMBICORT 160/4.5MCG INHALER 6GM INH SCH ×2 (07:49→20:22)
[2022-04-26 08:05] LABS: CALCIUM LEVEL 8.4 MG/DL (8.3-10.6); CREATININE FOR GFR 1.32 MG/DL (0.55-1.30); GLOMERULAR FILTRATION RATE 42.7 (>45); POTASSIUM SERUM 4.8 MMOL/L (3.5-5.1)
[2022-04-26] MEDS: HEPARIN SOD (PORCINE) 5000UNITS/ML 1ML VIAL/SYRINGE SC SCH ×2 (11:24→20:42)
[2022-04-26] MEDS: LIDOCAINE 5% (LIDODERM) PATCH TD SCH (11:25)
[2022-04-26] MEDS: METOPROLOL SUCC *XL* 25MG TAB (TopROL *XL*) PO SCH (11:26)
[2022-04-26] MEDS: CLOPIDOGREL 75 MG TAB PO SCH (11:26)
[2022-04-26] MEDS: amLODIPine 5 MG TAB PO SCH (11:26)
[2022-04-26] MEDS: guaiFENesin 200 MG TAB PO SCH ×3 (11:26→20:41)
[2022-04-26] MEDS: oxyBUTYnin 5 MG TAB PO SCH (11:26)
[2022-04-26] MEDS: SIMETHICONE 80MG CHEW TAB PO SCH ×3 (11:27→20:40)
[2022-04-26] MEDS: PANTOPRAZOLE 40MG TAB (PROTONIX) PO SCH ×2 (11:27→20:40)
[2022-04-26] MEDS: DULoxetine 20MG CAP (CYMBALTA) PO SCH (11:27)
[2022-04-26] MEDS: CYANOCOBALAMIN 500 MCG TAB PO SCH (11:27)
[2022-04-26] MEDS: FENOFIBRATE 145MG TABLET (TRICOR) PO SCH (11:27)
[2022-04-26] MEDS: **hydrALAZINE HCL** 25 MG TAB PO SCH (11:27)
[2022-04-26] MEDS: ASPIRIN 81MG ENTERIC TABLET PO SCH (11:27)
[2022-04-26] MEDS: NYSTATIN 100,000 UNITS/GM TOPICAL PWD 15GM TOP SCH ×2 (11:28→20:42)
[2022-04-26] MEDS: SODIUM CHLORIDE NASAL 0.65% SPRAY BTL (OCEAN) SCH ×3 (11:28→20:42)
[2022-04-26] MEDS: LORATADINE 10 MG TAB PO SCH (11:28)
[2022-04-26] MEDS: MAALOX 30 ML SUSP *UDC PO PRN (12:53)
[2022-04-26 14:00] VITALS: BP 204/94
[2022-04-26 15:45] VITALS: BP 136/64
[2022-04-26] MEDS: **hydrALAZINE** 50 MG TAB PO SCH ×2 (17:42→20:40)
[2022-04-26] MEDS: ACETAMINOPHEN TAB 650MG DOSE (2X325MG) PO PRN (19:39)
[2022-04-26 20:00] VITALS: BP 160/68
[2022-04-26] MEDS: oxyBUTYnin *DITROPAN XL* 5 MG TABCR PO SCH (20:39)
[2022-04-26] MEDS: MONTELUKAST 10 MG TAB PO SCH (20:40)
[2022-04-26] MEDS: ATORVASTATIN 20 MG TAB PO SCH (20:40)
[2022-04-26] MEDS: RAMELTEON 8 MG TAB (ROZEREM) PO SCH (20:40)
[2022-04-26] MEDS: traMADol 50 MG TAB PO SCH (20:41)
[2022-04-26] MEDS: LEVEMIR (INSULIN DETEMIR) 1 UNITS/0.01ML SC SCH (20:42)
[2022-04-27 05:00] VITALS: BP 154/57
[2022-04-27] MEDS: LEVOTHYROXINE 25MCG TABLET (0.025MG) PO SCH (06:17)
[2022-04-27] MEDS: DICLOFENAC EPOLAMINE 1.3% PATCH TOP SCH ×2 (06:18→16:57)
[2022-04-27] MEDS: INSULIN LISPRO (NovoLOG) PER UNIT SC SCH ×4 (07:30→19:47)
[2022-04-27] MEDS: SYMBICORT 160/4.5MCG INHALER 6GM INH SCH ×2 (07:39→20:10)
[2022-04-27] MEDS: guaiFENesin 200 MG TAB PO SCH ×3 (09:00→21:00)
[2022-04-27] MEDS: FENOFIBRATE 145MG TABLET (TRICOR) PO SCH (09:56)
[2022-04-27] MEDS: CYANOCOBALAMIN 500 MCG TAB PO SCH (09:56)
[2022-04-27] MEDS: ASPIRIN 81MG ENTERIC TABLET PO SCH (09:56)
[2022-04-27] MEDS: LORATADINE 10 MG TAB PO SCH (09:56)
[2022-04-27] MEDS: PANTOPRAZOLE 40MG TAB (PROTONIX) PO SCH ×2 (09:56→21:02)
[2022-04-27] MEDS: CLOPIDOGREL 75 MG TAB PO SCH (09:56)
[2022-04-27] MEDS: SIMETHICONE 80MG CHEW TAB PO SCH ×3 (09:56→21:02)
[2022-04-27] MEDS: amLODIPine 5 MG TAB PO SCH (09:57)
[2022-04-27] MEDS: METOPROLOL SUCC *XL* 25MG TAB (TopROL *XL*) PO SCH (09:57)
[2022-04-27] MEDS: **hydrALAZINE** 50 MG TAB PO SCH ×3 (09:57→21:02)
[2022-04-27] MEDS: DULoxetine 20MG CAP (CYMBALTA) PO SCH (09:57)
[2022-04-27] MEDS: LIDOCAINE 5% (LIDODERM) PATCH TD SCH (09:58)
[2022-04-27] MEDS: NYSTATIN 100,000 UNITS/GM TOPICAL PWD 15GM TOP SCH ×2 (09:58→21:05)
[2022-04-27] MEDS: HEPARIN SOD (PORCINE) 5000UNITS/ML 1ML VIAL/SYRINGE SC SCH ×2 (09:58→21:03)
[2022-04-27] MEDS: SODIUM CHLORIDE NASAL 0.65% SPRAY BTL (OCEAN) SCH ×3 (09:59→21:04)
[2022-04-27] MEDS: traMADol 50 MG TAB PO PRN (10:14)
[2022-04-27] MEDS: MAALOX 30 ML SUSP *UDC PO PRN (12:02)
[2022-04-27 14:00] VITALS: BP 152/60
[2022-04-27 20:00] VITALS: BP 148/52
[2022-04-27] MEDS: oxyBUTYnin *DITROPAN XL* 5 MG TABCR PO SCH (21:02)
[2022-04-27] MEDS: RAMELTEON 8 MG TAB (ROZEREM) PO SCH (21:02)
[2022-04-27] MEDS: ATORVASTATIN 20 MG TAB PO SCH (21:02)
[2022-04-27] MEDS: MONTELUKAST 10 MG TAB PO SCH (21:02)
[2022-04-27] MEDS: traMADol 50 MG TAB PO SCH (21:03)
[2022-04-27] MEDS: LEVEMIR (INSULIN DETEMIR) 1 UNITS/0.01ML SC SCH (21:04)
[2022-04-27] MEDS: LIDOCAINE 2% JELLY 6ML SYRINGE TOP SCH (21:13)
[2022-04-28] MEDS: DICLOFENAC EPOLAMINE 1.3% PATCH TOP SCH ×2 (05:18→17:17)
[2022-04-28] MEDS: LEVOTHYROXINE 25MCG TABLET (0.025MG) PO SCH (05:18)
[2022-04-28 06:00] VITALS: BP 148/50
[2022-04-28] MEDS: INSULIN LISPRO (NovoLOG) PER UNIT SC SCH ×4 (07:30→21:00)
[2022-04-28] MEDS: SYMBICORT 160/4.5MCG INHALER 6GM INH SCH ×2 (07:35→20:00)
[2022-04-28] MEDS: guaiFENesin 200 MG TAB PO SCH ×3 (09:00→21:00)
[2022-04-28] MEDS: LIDOCAINE 5% (LIDODERM) PATCH TD SCH (09:06)
[2022-04-28] MEDS: amLODIPine 5 MG TAB PO SCH (09:12)
[2022-04-28] MEDS: CYANOCOBALAMIN 500 MCG TAB PO SCH (09:13)
[2022-04-28] MEDS: FENOFIBRATE 145MG TABLET (TRICOR) PO SCH (09:13)
[2022-04-28] MEDS: DULoxetine 20MG CAP (CYMBALTA) PO SCH (09:13)
[2022-04-28] MEDS: ASPIRIN 81MG ENTERIC TABLET PO SCH (09:13)
[2022-04-28] MEDS: CLOPIDOGREL 75 MG TAB PO SCH (09:13)
[2022-04-28] MEDS: SIMETHICONE 80MG CHEW TAB PO SCH ×3 (09:13→21:19)
[2022-04-28] MEDS: LORATADINE 10 MG TAB PO SCH (09:13)
[2022-04-28] MEDS: PANTOPRAZOLE 40MG TAB (PROTONIX) PO SCH ×2 (09:14→21:21)
[2022-04-28] MEDS: **hydrALAZINE** 50 MG TAB PO SCH (09:14)
[2022-04-28] MEDS: METOPROLOL SUCC *XL* 25MG TAB (TopROL *XL*) PO SCH (09:14)
[2022-04-28] MEDS: HEPARIN SOD (PORCINE) 5000UNITS/ML 1ML VIAL/SYRINGE SC SCH ×2 (09:15→21:22)
[2022-04-28] MEDS: SODIUM CHLORIDE NASAL 0.65% SPRAY BTL (OCEAN) SCH ×3 (09:15→21:23)
[2022-04-28] MEDS: NYSTATIN 100,000 UNITS/GM TOPICAL PWD 15GM TOP SCH ×2 (09:17→21:00)
[2022-04-28] MEDS: LIDOCAINE 2% JELLY 6ML SYRINGE TOP SCH ×2 (09:17→21:28)
[2022-04-28 09:56] LABS: BASO % 0.4 % (0.0-1.0); EOS # 0.1 10^3/uL (0.0-0.5); EOS % 1.5 % (0.0-3.0); HEMATOCRIT 33.7 % (36.0-47.0); HEMOGLOBIN 10.3 g/dl (12.0-15.5); LYMPH # 0.9 10^3/uL (1.5-5.0); LYMPH % 12.2 % (24.0-44.0); MEAN CORPUSCULAR HEMOGLOBIN 27.4 pg (27.0-33.0); MEAN CORPUSCULAR HGB CONC 30.6 g/dl (32.0-36.5); MEAN CORPUSCULAR VOLUME 89.6 fl (80.0-96.0); MONO # 0.6 10^3/uL (0.0-0.8); MONO % 7.8 % (2.0-8.0); NEUTROPHILS # 5.7 10^3/uL (1.5-8.5); NEUTROPHILS % 77.1 % (36.0-66.0); PLATELET COUNT, AUTOMATED 267 10^3/uL (150-450); RED BLOOD COUNT 3.76 10^6/uL (4.00-5.40); WHITE BLOOD COUNT 7.4 10^3/uL (4.0-10.0)
[2022-04-28 10:23] LABS: CALCIUM LEVEL 8.4 MG/DL (8.3-10.6); CREATININE FOR GFR 1.4 MG/DL (0.55-1.30); GLOMERULAR FILTRATION RATE 39.9 (>45); POTASSIUM SERUM 4.8 MMOL/L (3.5-5.1)
[2022-04-28] MEDS: NS 1,000 ML IV SCH (12:54)
[2022-04-28] MEDS: traMADol 50 MG TAB PO PRN (12:56)
[2022-04-28] MEDS: ACETAMINOPHEN TAB 650MG DOSE (2X325MG) PO PRN ×2 (12:56→21:21)
[2022-04-28 14:00] VITALS: BP 136/60
[2022-04-28] MEDS: **hydrALAZINE HCL** 25 MG TAB PO SCH ×2 (17:15→21:22)
[2022-04-28] MEDS: MAALOX 30 ML SUSP *UDC PO PRN (17:24)
[2022-04-28 19:45] VITALS: BP 142/80
[2022-04-28] MEDS: oxyBUTYnin *DITROPAN XL* 5 MG TABCR PO SCH (21:19)
[2022-04-28] MEDS: RAMELTEON 8 MG TAB (ROZEREM) PO SCH (21:19)
[2022-04-28] MEDS: MONTELUKAST 10 MG TAB PO SCH (21:19)
[2022-04-28] MEDS: traMADol 50 MG TAB PO SCH (21:20)
[2022-04-28] MEDS: ATORVASTATIN 20 MG TAB PO SCH (21:22)
[2022-04-28] MEDS: LEVEMIR (INSULIN DETEMIR) 1 UNITS/0.01ML SC SCH (21:23)
[2022-04-29] MEDS: ACETAMINOPHEN TAB 650MG DOSE (2X325MG) PO PRN ×4 (01:29→21:02)
[2022-04-29] MEDS: ANALGESIC BALM CRM 3OZ TOP PRN ×4 (01:30→21:03)
[2022-04-29] MEDS: LEVOTHYROXINE 25MCG TABLET (0.025MG) PO SCH (05:24)
[2022-04-29] MEDS: DICLOFENAC EPOLAMINE 1.3% PATCH TOP SCH ×2 (05:24→17:25)
[2022-04-29 06:00] VITALS: BP 148/52
[2022-04-29] MEDS: NS 1,000 ML IV SCH (06:11)
[2022-04-29] MEDS: SYMBICORT 160/4.5MCG INHALER 6GM INH SCH ×2 (07:21→19:55)
[2022-04-29] MEDS: DULoxetine 20MG CAP (CYMBALTA) PO SCH (08:15)
[2022-04-29] MEDS: FENOFIBRATE 145MG TABLET (TRICOR) PO SCH (08:15)
[2022-04-29] MEDS: ASPIRIN 81MG ENTERIC TABLET PO SCH (08:15)
[2022-04-29] MEDS: traMADol 50 MG TAB PO SCH ×2 (08:15→21:04)
[2022-04-29] MEDS: CYANOCOBALAMIN 500 MCG TAB PO SCH (08:15)
[2022-04-29] MEDS: SIMETHICONE 80MG CHEW TAB PO SCH ×3 (08:16→20:59)
[2022-04-29] MEDS: CLOPIDOGREL 75 MG TAB PO SCH (08:16)
[2022-04-29] MEDS: LIDOCAINE 5% (LIDODERM) PATCH TD SCH (08:17)
[2022-04-29] MEDS: amLODIPine 5 MG TAB PO SCH (08:17)
[2022-04-29] MEDS: INSULIN LISPRO (NovoLOG) PER UNIT SC SCH ×4 (08:18→21:00)
[2022-04-29] MEDS: HEPARIN SOD (PORCINE) 5000UNITS/ML 1ML VIAL/SYRINGE SC SCH ×2 (08:19→21:03)
[2022-04-29] MEDS: LORATADINE 10 MG TAB PO SCH (08:20)
[2022-04-29] MEDS: PANTOPRAZOLE 40MG TAB (PROTONIX) PO SCH ×2 (08:20→21:01)
[2022-04-29] MEDS: **hydrALAZINE HCL** 25 MG TAB PO SCH ×3 (08:20→21:01)
[2022-04-29] MEDS: METOPROLOL SUCC *XL* 25MG TAB (TopROL *XL*) PO SCH (08:21)
[2022-04-29] MEDS: SODIUM CHLORIDE NASAL 0.65% SPRAY BTL (OCEAN) SCH ×3 (08:21→21:05)
[2022-04-29] MEDS: guaiFENesin 200 MG TAB PO SCH ×3 (08:23→19:14)
[2022-04-29] MEDS: LIDOCAINE 2% JELLY 6ML SYRINGE TOP SCH ×2 (08:25→21:05)
[2022-04-29] MEDS: NYSTATIN 100,000 UNITS/GM TOPICAL PWD 15GM TOP SCH ×2 (09:00→21:00)
[2022-04-29] MEDS: traMADol 50 MG TAB PO PRN ×2 (13:33→22:20)
[2022-04-29 14:00] VITALS: BP 154/70
[2022-04-29] MEDS: MAALOX 30 ML SUSP *UDC PO PRN (17:50)
[2022-04-29 20:00] VITALS: BP 161/70
[2022-04-29] MEDS: ATORVASTATIN 20 MG TAB PO SCH (20:59)
[2022-04-29] MEDS: RAMELTEON 8 MG TAB (ROZEREM) PO SCH (20:59)
[2022-04-29] MEDS: oxyBUTYnin *DITROPAN XL* 5 MG TABCR PO SCH (21:01)
[2022-04-29] MEDS: MONTELUKAST 10 MG TAB PO SCH (21:01)
[2022-04-29] MEDS: LEVEMIR (INSULIN DETEMIR) 1 UNITS/0.01ML SC SCH (21:02)
[2022-04-30] MEDS: LEVOTHYROXINE 25MCG TABLET (0.025MG) PO SCH (05:41)
[2022-04-30] MEDS: DICLOFENAC EPOLAMINE 1.3% PATCH TOP SCH ×2 (05:42→18:22)
[2022-04-30] MEDS: **hydrALAZINE HCL** 25 MG TAB PO SCH ×3 (05:44→20:50)
[2022-04-30 06:00] VITALS: BP 180/60
[2022-04-30 06:35] VITALS: BP 160/58
[2022-04-30 06:45] LABS: CALCIUM LEVEL 8.6 MG/DL (8.3-10.6); CREATININE FOR GFR 1.38 MG/DL (0.55-1.30); GLOMERULAR FILTRATION RATE 40.6 (>45); POTASSIUM SERUM 4.4 MMOL/L (3.5-5.1)
[2022-04-30] MEDS: INSULIN LISPRO (NovoLOG) PER UNIT SC SCH ×4 (07:17→20:53)
[2022-04-30] MEDS: guaiFENesin 200 MG TAB PO SCH ×3 (07:18→20:52)
[2022-04-30] MEDS: LIDOCAINE 5% (LIDODERM) PATCH TD SCH (07:26)
[2022-04-30] MEDS: HEPARIN SOD (PORCINE) 5000UNITS/ML 1ML VIAL/SYRINGE SC SCH ×2 (07:26→20:53)
[2022-04-30] MEDS: METOPROLOL SUCC *XL* 25MG TAB (TopROL *XL*) PO SCH (07:27)
[2022-04-30] MEDS: FENOFIBRATE 145MG TABLET (TRICOR) PO SCH (07:27)
[2022-04-30] MEDS: amLODIPine 5 MG TAB PO SCH (07:28)
[2022-04-30] MEDS: ASPIRIN 81MG ENTERIC TABLET PO SCH (07:28)
[2022-04-30] MEDS: CYANOCOBALAMIN 500 MCG TAB PO SCH (07:28)
[2022-04-30] MEDS: SIMETHICONE 80MG CHEW TAB PO SCH ×3 (07:28→20:50)
[2022-04-30] MEDS: PANTOPRAZOLE 40MG TAB (PROTONIX) PO SCH ×2 (07:28→20:52)
[2022-04-30] MEDS: DULoxetine 20MG CAP (CYMBALTA) PO SCH (07:28)
[2022-04-30] MEDS: LORATADINE 10 MG TAB PO SCH (07:29)
[2022-04-30] MEDS: CLOPIDOGREL 75 MG TAB PO SCH (07:29)
[2022-04-30] MEDS: SODIUM CHLORIDE NASAL 0.65% SPRAY BTL (OCEAN) SCH ×3 (07:30→20:54)
[2022-04-30] MEDS: LIDOCAINE 2% JELLY 6ML SYRINGE TOP SCH ×2 (07:30→20:55)
[2022-04-30] MEDS: NYSTATIN 100,000 UNITS/GM TOPICAL PWD 15GM TOP SCH ×2 (09:00→20:55)
[2022-04-30] MEDS: SYMBICORT 160/4.5MCG INHALER 6GM INH SCH ×2 (11:09→20:19)
[2022-04-30 14:00] VITALS: BP 148/73
[2022-04-30 17:01] VITALS: BP 168/70
[2022-04-30] MEDS: MAALOX 30 ML SUSP *UDC PO PRN (18:21)
[2022-04-30 20:00] VITALS: BP 142/66
[2022-04-30] MEDS: RAMELTEON 8 MG TAB (ROZEREM) PO SCH (20:50)
[2022-04-30] MEDS: MONTELUKAST 10 MG TAB PO SCH (20:51)
[2022-04-30] MEDS: ACETAMINOPHEN TAB 650MG DOSE (2X325MG) PO PRN (20:51)
[2022-04-30] MEDS: traMADol 50 MG TAB PO SCH (20:51)
[2022-04-30] MEDS: ATORVASTATIN 20 MG TAB PO SCH (20:52)
[2022-04-30] MEDS: oxyBUTYnin *DITROPAN XL* 5 MG TABCR PO SCH (20:52)
[2022-04-30] MEDS: LEVEMIR (INSULIN DETEMIR) 1 UNITS/0.01ML SC SCH (20:54)
[2022-04-30] MEDS: traMADol 50 MG TAB PO PRN (22:22)
[2022-05-01] MEDS: LEVOTHYROXINE 25MCG TABLET (0.025MG) PO SCH (05:43)
[2022-05-01] MEDS: DICLOFENAC EPOLAMINE 1.3% PATCH TOP SCH (05:43)
[2022-05-01 06:00] VITALS: BP 148/70
[2022-05-01] MEDS: SYMBICORT 160/4.5MCG INHALER 6GM INH SCH (06:19)
[2022-05-01] MEDS: INSULIN LISPRO (NovoLOG) PER UNIT SC SCH ×2 (07:24→12:00)
[2022-05-01] MEDS: guaiFENesin 200 MG TAB PO SCH (07:25)
[2022-05-01] MEDS: NYSTATIN 100,000 UNITS/GM TOPICAL PWD 15GM TOP SCH (09:00)
[2022-05-01] MEDS ORDERED: PANT40TA29 PO (09:56)
[2022-05-01] MEDS ORDERED: TRAM50TA2 PO (09:56)
[2022-05-01] MEDS ORDERED: SIME80TA16 PO (09:56)
[2022-05-01] MEDS ORDERED: HYDR25TA PO (09:56)
[2022-05-01] MEDS ORDERED: DITR5TAB PO (09:56)
[2022-05-01] MEDS ORDERED: HEPA500023 SC (09:56)
[2022-05-01] MEDS ORDERED: LIDO5TD TD (09:56)
[2022-05-01] MEDS ORDERED: CYMB1CAP4 PO (09:56)
[2022-05-01] MEDS ORDERED: CLAR10TA7 PO (09:56)
[2022-05-01] MEDS: HEPARIN SOD (PORCINE) 5000UNITS/ML 1ML VIAL/SYRINGE SC SCH (10:04)
[2022-05-01] MEDS: LORATADINE 10 MG TAB PO SCH (10:05)
[2022-05-01] MEDS: SIMETHICONE 80MG CHEW TAB PO SCH (10:05)
[2022-05-01] MEDS: amLODIPine 5 MG TAB PO SCH (10:05)
[2022-05-01] MEDS: CLOPIDOGREL 75 MG TAB PO SCH (10:05)
[2022-05-01] MEDS: **hydrALAZINE HCL** 25 MG TAB PO SCH (10:05)
[2022-05-01] MEDS: PANTOPRAZOLE 40MG TAB (PROTONIX) PO SCH (10:05)
[2022-05-01 10:06] VITALS: BP 162/90
[2022-05-01] MEDS: METOPROLOL SUCC *XL* 25MG TAB (TopROL *XL*) PO SCH (10:06)
[2022-05-01] MEDS: ASPIRIN 81MG ENTERIC TABLET PO SCH (10:06)
[2022-05-01] MEDS: FENOFIBRATE 145MG TABLET (TRICOR) PO SCH (10:06)
[2022-05-01] MEDS: DULoxetine 20MG CAP (CYMBALTA) PO SCH (10:06)
[2022-05-01] MEDS: CYANOCOBALAMIN 500 MCG TAB PO SCH (10:06)
[2022-05-01] MEDS: LIDOCAINE 5% (LIDODERM) PATCH TD SCH (10:07)
[2022-05-01] MEDS: SODIUM CHLORIDE NASAL 0.65% SPRAY BTL (OCEAN) SCH (10:07)
[2022-05-01] MEDS: LIDOCAINE 2% JELLY 6ML SYRINGE TOP SCH (10:08)
== END 2022-05-01 13:00 | DRG 56 ==
LOC: OBSVTOIN 15:10 → M PM&R 15:10
PROVIDERS: ADMIT Physical Medicine & Rehabilitation; ATTEND Physical Medicine & Rehabilitation
DX: I69.391 Dysphagia following cerebral infarction (principal); U07.1 COVID-19; N39.0 Urinary tract infection, site not specified; N17.9 Acute kidney failure, unspecified; R13.10 Dysphagia, unspecified; I10 Essential (primary) hypertension; I69.364 Other paralytic syndrome following cerebral infarction affecting left non-dominant side; E11.65 Type 2 diabetes mellitus with hyperglycemia; I25.10 Atherosclerotic heart disease of native coronary artery without angina pectoris; E66.9 Obesity, unspecified; G47.33 Obstructive sleep apnea (adult) (pediatric); N32.81 Overactive bladder; G43.909 Migraine, unspecified, not intractable, without status migrainosus; E03.9 Hypothyroidism, unspecified; J44.9 Chronic obstructive pulmonary disease, unspecified; Z91.040 Latex allergy status; Z79.4 Long term (current) use of insulin; Z88.0 Allergy status to penicillin; Z88.8 Allergy status to other drugs, medicaments and biological substances; Z79.82 Long term (current) use of aspirin; Z79.899 Other long term (current) drug therapy; M19.90 Unspecified osteoarthritis, unspecified site; B96.29 Other Escherichia coli [E. coli] as the cause of diseases classified elsewhere; B00.1 Herpesviral vesicular dermatitis; E78.5 Hyperlipidemia, unspecified; Z95.2 Presence of prosthetic heart valve